=== PATIENT | female | born 1990 | race Native Hawaiian/Other Pacific Islander ===

== ENCOUNTER 2018-06-05 09:51 | Inpatient (IN) | payer OTHER ==
[2018-05-30 15:26] VITALS: BMI 52.2
--- NOTE | 2018-06-04 21:09 | P.HPOB ---
History of Present Illness H&P Date: 06/04/18 Chief Complaint: Scheduled repeat section This is a 28-year-old female 2 para 1 with an estimated date of confinement of 06/12/2018, estimated gestational age of 39-0/7 weeks, who presents to labor and delivery for scheduled repeat section. She admits to good movement. She denies any regular contractions. course was complicated by partial previa early on in her . This did resolve by 32 weeks. labs: GC/chlamydia-negative Hepatitis B surface antigen-negative RPR-nonreactive Rubella-immune Blood type-B+ Antibody screen-negative HIV-nonreactive Hemoglobin-13 Toxoplasma-positive IgG and negative IgM Random glucose-94 One hour Glucola-159 Three-hour Glucola-1 hour value high but all others normal Group B streptococcus-negative Obstetrical history: . History of 1 delivery due to failed induction. Infant weight was 8 lbs. 10 oz. Gynecologic history: No history of sexually transmitted diseases. Review of Systems Constitutional: Denies chills, Denies fever Eyes: denies blurred vision, denies pain Ears, nose, mouth and throat: Denies headache, Denies sore throat Cardiovascular: Denies chest pain, Denies shortness of breath Respiratory: Denies cough Gastrointestinal: Reports abdominal pain Genitourinary: Reports pelvic pain, Reports Musculoskeletal: Reports low back pain Integumentary: Denies pruritus, Denies rash Neurological: Denies numbness, Denies weakness Psychiatric: Denies anxiety, Denies depression Past Medical History Past Medical History: GERD/Reflux History of Any Multi-Drug Resistant Organisms: None Reported Past Surgical History: Section, Tonsillectomy Past Anesthesia/Blood Transfusion Reactions: No Reported Reaction Additional Past Anesthesia/Blood Transfusion Reaction / Comment(s): . Past Psychological History: No Psychological Hx Reported Smoking Status: Former smoker Past Alcohol Use History: None Reported Additional Past Alcohol Use History / Comment(s): Quit smoking 9 months ago., started smoking at age 18,<1ppd Past Drug Use History: None Reported - Past Family History Mother Family Medical History: Diabetes Mellitus Father Family Medical History: No Reported History Medications and Allergies Home Medications Medication Instructions Recorded Confirmed Type Pnv No.95/Ferrous Fum/Folic AC 1 each PO DAILY 12/28/18 12/28/18 History [ Multivitamin Tablet] Tums (Unknown Dose) 1 tab PO DIRECTED PRN 05/30/18 History Allergies Allergy/AdvReac Type Severity Reaction Status Date / Time No Known Allergies Allergy Verified 05/30/18 15:13 Exam Osteopathic Statement: *. No significant issues noted on an osteopathic structural exam other than those noted in the History and Physical/Consult. HEENT: Within normal limits Heart: Regular rate and rhythm Lungs: Clear to auscultation bilaterally Abdomen: Cervix: Fingertip/60%/-3 heart tones: 150s by Doppler Extremities: Negative Homans Assessment and Plan (1) 39 weeks gestation of Status: Acute Code(s): Z3A.39 - 39 WEEKS GESTATION OF SNOMED Code( s): 08371389 (2) Previous section Status: Acute Code(s): Z98.891 - HISTORY OF UTERINE SCAR FROM PREVIOUS SURGERY SNOMED Code(s): 851186211 Plan: Proceed with repeat low transverse section. I have discussed the risks, benefits, and alternative therapies for the above- mentioned procedure and for both sedation/anesthesia as well as necessary blood products administration, if indicated, as they pertain to this patient. The patient has indicated her understanding and acceptance of the risks and procedures discussed.
[2018-06-05] MEDS ORDERED: CITRIC ACID-SODIUM CITRATE 15 ML CUP PO ONE (10:00)
[2018-06-05] MEDS ORDERED: LIDOCAINE 1% 20 ML VIAL (10MG/ML) FOR IV START INTRADERMA PRN (10:00)
[2018-06-05] MEDS ORDERED: LACTATED RINGERS 1,000 ML IV ONE (10:00)
[2018-06-05 10:19] LABS: Basophils % (A) 0 %; Eosinophils # (A) 0.1 k/uL (0-0.7); Eosinophils % (A) 1 %; HCT 31.1 % (34.0-46.0); HGB 10.1 gm/dL (11.4-16.0); Hypochromasia Slight; Lymphocytes # (A) 2.6 k/uL (1.0-4.8); Lymphocytes % (A) 25 %; MCH 25.4 pg (25.0-35.0); MCHC 32.6 g/dL (31.0-37.0); Mean Platelet Volume 9.8; Monocytes # (A) 0.5 k/uL (0-1.0); Monocytes % (A) 5 %; Neutrophils # (A) 6.9 k/uL (1.3-7.7); Neutrophils % (A) 67 %; Platelet Count 215 k/uL (150-450); RBC 3.98 m/uL (3.80-5.40); RDW 14.4 % (11.5-15.5); WBC 10.2 k/uL (3.8-10.6)
[2018-06-05] MEDS: LACTATED RINGERS 1,000 ML IV SCH ×2 (10:58→22:05)
[2018-06-05] MEDS ORDERED: KETOROLAC 30 MG/ML 1 ML VIAL ONE (11:59)
[2018-06-05] MEDS ORDERED: LACTATED RINGERS 1,000 ML BAG IV ONE (11:59)
[2018-06-05] MEDS ORDERED: OXYTOCIN 10 UNIT/ML 1 ML VIAL ONE (11:59)
[2018-06-05] MEDS ORDERED: PHENYLEPHRINE-0.9% NACL SYG 1 MG/10 ML SYRINGE ONE (11:59)
[2018-06-05] MEDS ORDERED: ONDANSETRON 4 MG/2 ML VIAL ONE (11:59)
[2018-06-05] MEDS ORDERED: NALBUPHINE 10 MG/ML VIAL (10ML MDV) ONE (11:59)
--- NOTE | 2018-06-05 12:47 | P.OP ---
Date of Procedure: 06/05/18 Preoperative Diagnosis: 1. Intrauterine at 39-0/7 weeks. 2. History of previous section. Postoperative Diagnosis: Same plus meconium fluid Procedure(s) Performed: Repeat low transverse section Anesthesia: spinal (Duramorph) Surgeon: Kareen Porras Music Engineer #1: Dre Weaver Estimated Blood Loss (ml): 600 Pathology: other (Placenta) Condition: stable Disposition: floor Indications for Procedure: This is a 28-year-old female 2 para 1 at 39-0/7 weeks who presents for scheduled repeat section. I have discussed the risks, benefits, and alternative therapies for the above- mentioned procedure and for both sedation/anesthesia as well as necessary blood products administration, if indicated, as they pertain to this patient. The patient has indicated her understanding and acceptance of the risks and procedures discussed. Operative Findings: A viable male infant is noted in the vertex presentation with scores of 8 at 1 minute and 9 at 5 minutes and infant weight of 9 lbs. 7 oz. Meconium stained fluid was noted. Normal uterus tubes and ovaries are noted. There was noted to be some omental adhesions to the anterior abdominal wall just below the umbilicus. Description of Procedure: The patient is taken to the operating room where she is placed in the dorsal supine position with leftward tilt after spinal Duramorph anesthesia is given. She is prepped and draped in the normal sterile fashion. Skin was tested and found to be adequately anesthetized. A Pfannenstiel skin incision was made with a scalpel through the previous laparotomy scar. A second knife was used to carry the incision down to the underlying layer of fascia. The fascia was nicked in the midline with a scalpel and then extended laterally bilaterally with Guerra scissors. The anterior lip of the fascia was grasped with 2 Jocy clamps and then dissected off the underlying rectus muscle in the midline with Guerra scissors. The inferior aspect of the fascial incision was grasped with 2 Jocy clamps and dissected off the underlying rectus muscle and the midline with Guerra scissors. Next the peritoneum layer tented up with 2 hemostats and then entered sharply with the scalpel. The incision is extended superiorly and inferiorly with Metzenbaum scissors. There is noted to be some omental adhesions near the superior portion of the peritoneal incision. Next an Reji wound placed. Next the Delee retractor was inserte. The vesicouterine peritoneum is entered sharply with Metzenbaum scissors and extended laterally bilaterally with Metzenbaum scissors and then the bladder flap is pushed inferiorly. The lower uterine segment is noted to be very thin. The lower uterine segment is incised in transverse fashion with the scalpel and then bluntly entered with a hemostat. Meconium fluid is noted. The incision was then extended laterally bilaterally with 2 fingers. Next the 's head is delivered through the incision. Nose and mouth are bulb suctioned. The remainder of the infant is easily delivered and placed on mother's abdomen. Cord is clamped and cut. Infant is taken to warmer by nursing staff. Uterine fundus is gently massaged and placenta is delivered manually. Meconium staining was noted. Uterus is exteriorized and cleared of all clots and debris. Uterine incision is closed with 0 Vicryl suture in a running locked fashion. A second layer of 0 Vicryl suture is used in a running fashion for hemostasis. A couple interrupted stitches are placed for hemostasis. Posterior cul-de-sac is suctioned of all clots and debris. Uterus is returned to the abdomen. Incision is noted to be hemostatic. Peritoneal layer is closed with 0 Vicryl suture in a running fashion. Muscle layer is reapproximated with 0 Vicryl suture in interrupted fashion. Fascia layer is then closed with 0 PDS suture with 2 sutures meeting in the midline and the knots buried in either side and in the midline. The subcutaneous tissue was then closed with 2-0 Vicryl suture. Skin layer was then closed with good. All sponge and needle counts are correct. The patient is taken to recovery room in stable condition.
[2018-06-05] MEDS ORDERED: ZOLPIDEM 5 MG TAB PO PRN (12:53)
[2018-06-05] MEDS ORDERED: LANOLIN CREAM 5 GM TUBE TOPICAL PRN (12:53)
[2018-06-05] MEDS ORDERED: SIMETHICONE 80 MG CHEWABLE PO PRN (12:53)
[2018-06-05] MEDS ORDERED: diphenhydrAMINE 50 MG/ML 1 ML VIAL IVP PRN ×2 (12:53)
[2018-06-05] MEDS ORDERED: ONDANSETRON 4 MG/2 ML VIAL IVP PRN (12:53)
[2018-06-05] MEDS ORDERED: diphenhydrAMINE 50 MG CAP PO PRN (12:53)
[2018-06-05] MEDS ORDERED: diphenhydrAMINE 25 MG CAP PO PRN (12:53)
[2018-06-05] MEDS ORDERED: NALOXONE 0.4 MG/ML 1 ML VIAL IV PRN (12:53)
[2018-06-05] MEDS ORDERED: OXYTOCIN 20 UNITS/1000 ML NS 1,000 ML IV SCH (12:53)
[2018-06-05] MEDS ORDERED: HYDROcodone/APAP 5-325MG 1 EACH TAB PO PRN (12:53)
[2018-06-05] MEDS ORDERED: ACETAMINOPHEN TAB 325 MG TAB PO PRN (12:53)
[2018-06-05] MEDS ORDERED: HYDROcodone/APAP 7.5-325MG 1 EACH TAB PO PRN (12:53)
[2018-06-05] MEDS ORDERED: METOCLOPRAMIDE 5 MG/ML 2 ML VIAL IVP PRN (12:53)
[2018-06-05] MEDS: SENNOSIDES-DOCUSATE SODIUM 1 EACH TAB PO SCH (20:59)
[2018-06-05] MEDS: KETOROLAC 30 MG/ML 1 ML VIAL IVP PRN (21:00)
[2018-06-06] MEDS: KETOROLAC 30 MG/ML 1 ML VIAL IVP PRN (02:07)
--- NOTE | 2018-06-06 07:17 | P.PN ---
Progress Note - Text Date:06/06 Time:659 Patient is status post . Patient seen this morning with VAS score of 2.no c/o of pruritus, no c/o nausea/vomiting, comfortable and doing well.
[2018-06-06 08:14] LABS: Basophils % (A) 0 %; Eosinophils # (A) 0.1 k/uL (0-0.7); Eosinophils % (A) 1 %; Hypochromasia Slight; Lymphocytes # (A) 2.2 k/uL (1.0-4.8); Lymphocytes % (A) 24 %; MCH 24.6 pg (25.0-35.0); MCHC 31.3 g/dL (31.0-37.0); MCV 78.7 fL (80.0-100.0); Mean Platelet Volume 9.6; Monocytes # (A) 0.5 k/uL (0-1.0); Monocytes % (A) 5 %; Neutrophils # (A) 6.2 k/uL (1.3-7.7); Neutrophils % (A) 67 %; Platelet Count 173 k/uL (150-450); Poikilocytosis Slight; RBC 3.17 m/uL (3.80-5.40); RDW 14.3 % (11.5-15.5); WBC 9.3 k/uL (3.8-10.6)
[2018-06-06] MEDS: SENNOSIDES-DOCUSATE SODIUM 1 EACH TAB PO SCH ×2 (08:22→21:11)
[2018-06-06 08:27] LABS: HGB 7.8 gm/dL (11.4-16.0)
--- NOTE | 2018-06-06 08:51 | P.PNOBGPC ---
Subjective - Subjective Principal diagnosis: Status post repeat section postoperative day #1 Interval history: Patient is doing well. She is breast-feeding. Lochia is decreasing. Pain is well-controlled. She is passing flatus but no bowel movement yet. She is urinating without difficulty. Patient reports: Reports appetite normal, Reports voiding normally, Reports pain well controlled, Reports ambulating normally, Denies dizzy ambulation [place]: doing well, nursing well Objective - Vital Signs Latest vital signs: Vital Signs Temp Pulse Resp BP Pulse Ox 06/06/18 08:15 97.9 F 90 16 109/68 99 06/06/18 04:00 98.4 F 79 16 102/49 99 06/06/18 00:00 97.0 F L 80 16 109/54 97 06/05/18 19:00 98.6 F 79 16 123/73 97 06/05/18 14:50 97.7 F 72 18 107/55 06/05/18 14:20 97.4 F L 77 18 106/63 97 06/05/18 13:50 97.3 F L 67 18 116/61 100 06/05/18 13:35 96.7 F L 85 18 143/68 100 06/05/18 13:20 97.9 F 79 18 111/56 100 06/05/18 13:05 97.3 F L 84 18 112/56 100 06/05/18 12:50 97.2 F L 86 18 109/55 100 06/05/18 09:59 97.5 F L 85 18 130/65 99 Intake and Output 06/05/18 06/06/18 06/06/18 22:59 06:59 14:59 Intake Total 600 Output Total 350 400 Balance -350 -400 600 Intake: Oral 600 Output: Urine 350 400 Other: # Voids 1 2 - Exam Extremities: Present: normal. Absent: tenderness Abdomen: Present: normal appearance, soft (Positive bowel sounds 4). Absent: distention, tenderness Incision: Present: normal, dry, intact. Absent: erythematous Uterus: Present: normal, firm. Absent: tenderness - Labs Labs: Abnormal Lab Results - Last 24 Hours (Table) 06/05/18 06/06/18 Range/Units 10:05 06:38 RBC 3.17 L (3.80-5.40) m/uL Hgb 10.1 L 7.8 L D (11.4-16.0) gm/dL Hct 31.1 L 25.0 L (34.0-46.0) % MCV 78.0 L 78.7 L (80.0-100.0) fL MCH 24.6 L (25.0-35.0) pg Assessment and Plan Assessment: Impression is status post repeat section postoperative day #1 (1) 39 weeks gestation of Current Visit: No Status: Acute Code(s): Z3A.39 - 39 WEEKS GESTATION OF SNOMED Code(s): 03526530 (2) Previous section Current Visit: No Status: Acute Code(s): Z98.891 - HISTORY OF UTERINE SCAR FROM PREVIOUS SURGERY SNOMED Code(s): 830260457 Plan: We'll switch to oral pain medications today. Will advance diet as tolerated. Continue with ambulating.
[2018-06-06] MEDS: IBUPROFEN 600 MG TAB PO PRN ×2 (14:36→21:11)
[2018-06-07] MEDS: IBUPROFEN 600 MG TAB PO PRN ×3 (05:52→19:18)
[2018-06-07] MEDS: SENNOSIDES-DOCUSATE SODIUM 1 EACH TAB PO SCH ×2 (07:40→19:17)
--- NOTE | 2018-06-07 07:45 | P.PNOBGPC ---
Subjective - Subjective Patient reports: Reports appetite normal, Reports voiding normally, Reports pain well controlled, Reports ambulating normally [place]: doing well Objective - Vital Signs Latest vital signs: Vital Signs Temp Pulse Resp BP Pulse Ox 06/06/18 23:59 98.4 F 78 16 113/45 06/06/18 16:00 98.1 F 78 17 121/70 98 06/06/18 12:00 98.7 F 82 17 120/71 06/06/18 08:15 97.9 F 90 16 109/68 99 - Exam Lungs: bilateral: normal Chest: Normal S1, Normal S2 Extremities: Present: normal Abdomen: Present: normal appearance, soft. Absent: distention, tenderness Incision: Present: normal, dry, intact Uterus: Present: normal, firm - Labs Labs: Abnormal Lab Results - Last 24 Hours (Table) 06/06/18 Range/Units 06:38 RBC 3.17 L (3.80-5.40) m/uL Hgb 7.8 L D (11.4-16.0) gm/dL Hct 25.0 L (34.0-46.0) % MCV 78.7 L (80.0-100.0) fL MCH 24.6 L (25.0-35.0) pg Assessment and Plan Assessment: Postoperative day #2. Patient is resting without complaints and wishes to go home. Vital signs are stable she is afebrile. Uterus is firm nontender and her incision is intact and dry. Her baby is getting triple phototherapy, so I' m not sure if she is going to go home today or tomorrow. Plan today is to continue routine postoperative care, continue ambulation. (1) Previous section Current Visit: No Status: Acute Code(s): Z98.891 - HISTORY OF UTERINE SCAR FROM PREVIOUS SURGERY SNOMED Code(s): 858595588
--- NOTE | 2018-06-07 07:54 | P.DS ---
Providers Date of admission: 06/05/18 09:51 Expected date of discharge: 06/07/18 Attending physician: Kareen Porras Primary care physician: Stated None - Discharge Diagnosis(es) (1) Previous section Current Visit: No Status: Acute Hospital Course: Please see dictated H&P and operative note per Dr. Porras on this patient's admission. Brief summary this is a pleasant 28-year-old 2 para 1 female admitted for elective repeat section. Patient is admitted undergoes repeat section for a viable male . Please see dictated operative note. Postoperative and 2 patient's felt to be stable for discharge home follow up with Dr. Porras in 1 week for an incision check. Procedures: Repeat low transverse section Patient Condition at Discharge: Good Plan - Discharge Summary Discharge Rx Participant: Yes New Discharge Prescriptions: New Ibuprofen [Motrin] 600 mg PO Q6HR PRN #60 tab PRN Reason: Mild Pain Or Fever >= 100.5 HYDROcodone/APAP 5-325MG [[place] 5-325] 2 each PO Q4HR PRN #36 tab PRN Reason: Moderate Pain Continue Pnv No.95/Ferrous Fum/Folic AC [ Multivitamin Tablet] 1 each PO DAILY No Action Tums (Unknown Dose) 1 tab PO DIRECTED PRN PRN Reason: Heartburn Discharge Medication List Pnv No.95/Ferrous Fum/Folic AC [ Multivitamin Tablet] 1 each PO DAILY [History] Tums (Unknown Dose) 1 tab PO DIRECTED PRN 05/30/18 [History] Ibuprofen [Motrin] 600 mg PO Q6HR PRN #60 tab 06/06/18 [Rx] HYDROcodone/APAP 5-325MG [[place] 5-325] 2 each PO Q4HR PRN #36 tab 06/07/18 [Rx] Follow up Appointment(s)/Referral(s): Kareen Porras DO [Doctor of Osteopathic Medicine] - 06/13/18 1:30 pm (Please see Dr. Porras on July 18 at 11:30 for a check as well.) Patient Instructions/Handouts: (DC) Activity/Diet/Wound Care/Special Instructions: Instructions 1. Do not begin any exercise program for 3 weeks. 2. Do not resume sexual relations for 3 weeks or longer if uncomfortable. 3. You may take tub baths or showers at any time. 4. You may use tampons if desired after 3 weeks. 5. Keep the area of episiotomy (stitches) clean and dry. 6. If you are not nursing, wear a good fitting, supportive bra during the day and limit fluid intake for at least 1 week to prevent breast engorgement. 7. Call the office, [phone], within the next week to make appointment for your 6 week checkup if it has not already been made. 8. Report any of the following occurrences to the doctor promptly: a. Heavy, excessive bleeding b. Chills, fever c. Burning or frequency of urination d. Pain or redness and breasts if nursing e. Increasing pain or swelling in episiotomy (stitches). In addition to the above instructions, the following additional should be followed: 1. No heavy lifting or straining (exercising) until after 6 week checkup. 2. Keep abdominal incision clean and dry: You may wear a dressing if more comfortable. 3. Make office appointment for 10 days after going home or as instructed by her doctor. Discharge Disposition: HOME SELF-CARE
[2018-06-08] MEDS: IBUPROFEN 600 MG TAB PO PRN (06:10)
--- NOTE | 2018-06-08 06:55 | P.PN ---
Progress Note - Text Progress Note Date: 06/08/18 Patient's baby was unable to go home yesterday secondary to jaundice and therefore patient decided to stay until today. She continues to well without complaints felt to be stable for discharge home today.
[2018-06-08] MEDS: SENNOSIDES-DOCUSATE SODIUM 1 EACH TAB PO SCH (07:46)
[2018-06-08 07:57] VITALS: BP 115/59; PULSE 77; RESP 17; TEMP 98.1
== END 2018-06-08 10:40 | disposition home or self-care (01) | DRG 788 ==
LOC: 4FBP 09:51
PROVIDERS: ADMIT Obstetrics & Gynecology; ATTEND Obstetrics & Gynecology
PROC: 10D00Z1 Extraction of Products of Conception, Low, Open Approach (ICD-10-PCS; principal; 2018-06-05 12:00)
DX: O34.211 Maternal care for low transverse scar from previous cesarean delivery (principal); Z37.0 Single live birth; Z3A.39 39 weeks gestation of pregnancy; Z87.891 Personal history of nicotine dependence; K21.9 Gastro-esophageal reflux disease without esophagitis; O99.62 Diseases of the digestive system complicating childbirth; O77.0 Labor and delivery complicated by meconium in amniotic fluid; Z83.3 Family history of diabetes mellitus
CPT/HCPCS: 85025; 86850; 86900; 86901; 88307

== ENCOUNTER 2021-07-05 06:43 | Day surgery (SDC) | payer OTHER ==
[2021-06-29 15:57] VITALS: BMI 47.3
--- NOTE | 2021-07-04 21:32 | P.HPOB ---
History of Present Illness H&P Date: 07/04/21 Chief Complaint: JH II This is a 31 y.o. female 2, para 2, who presents for colposcopy with loop electrocautery excision procedure due to JH I & II on colposcopy done 10/20/2020. She had a repeat pap smear done 05/2021 that showed atypical squamous cells of undetermined significance with positive high risk HPV. She would like definitive surgical treatment. OB Hx: . History of 2 deliveries. [employer] Hx: Using condoms for control. No other history of STDs. Social Hx: Single. Factory work. Review of Systems Constitutional: Denies chills, Denies fever Eyes: denies blurred vision, denies pain Ears, nose, mouth and throat: Denies headache, Denies sore throat Cardiovascular: Denies chest pain, Denies shortness of breath Respiratory: Denies cough Gastrointestinal: Denies abdominal pain, Denies diarrhea, Denies nausea, Denies vomiting Genitourinary: Denies dysuria, Denies hematuria Musculoskeletal: Denies myalgias Integumentary: Denies pruritus, Denies rash Neurological: Denies numbness, Denies weakness Psychiatric: Denies anxiety, Denies depression Past Medical History Past Medical History: GERD/Reflux Additional Past Medical History / Comment(s): GERD WHILE . History of Any Multi-Drug Resistant Organisms: None Reported Past Surgical History: Section (x2), Tonsillectomy Past Anesthesia/Blood Transfusion Reactions: No Reported Reaction Additional Past Anesthesia/Blood Transfusion Reaction / Comment(s): . Past Psychological History: No Psychological Hx Reported Smoking Status: Former smoker Past Alcohol Use History: None Reported Additional Past Alcohol Use History / Comment(s): Quit smoking in 2018, started smoking at age 18, <1ppd. Past Drug Use History: None Reported - Past Family History Mother Family Medical History: Diabetes Mellitus Father Family Medical History: No Reported History Medications and Allergies Home Medications Medication Instructions Recorded Confirmed Type Cyanocobalamin (Vitamin B-12) 500 mcg PO DAILY 06/29/21 06/29/21 History [Vitamin B-12] Allergies Allergy/AdvReac Type Severity Reaction Status Date / Time No Known Allergies Allergy Verified 06/29/21 15:48 Exam Osteopathic Statement: *. No significant issues noted on an osteopathic structural exam other than those noted in the History and Physical/Consult. HEENT: within normal limits Heart: regular rate and rhythm Lungs: clear to auscultation bilaterally Abdomen: soft, non-tender Pelvic: uterus anteverted, non-tender, no adnexal masses Extremities: neg. Thania's Assessment and Plan (1) JH II (cervical intraepithelial neoplasia II) Current Visit: No Status: Acute Code(s): N87.1 - MODERATE CERVICAL DYSPLASIA SNOMED Code(s): 060615908 (2) JH I (cervical intraepithelial neoplasia I) Current Visit: No Status: Acute Code(s): N87.0 - MILD CERVICAL DYSPLASIA SNOMED Code(s): 351236450 Plan: Proceed with colposcopy with loop electrocautery excision procedure. I have discussed the risks, benefits, and alternative therapies for the above- mentioned procedure and for both sedation/anesthesia as well as necessary blood products administration, if indicated, as they pertain to this patient. The patient has indicated her understanding and acceptance of the risks and procedures discussed.
[~2021-07-05 06:43] MED LIST: Pre Op ABX Message 1 EACH MISC MISCELLANE ONE
[2021-07-05] MEDS ORDERED: LACTATED RINGERS 1,000 ML IV SCH (06:47)
[2021-07-05] MEDS ORDERED: LIDOCAINE 1% (10MG/ML) FOR IV START INTRADERMA PRN (06:47)
[2021-07-05] MEDS ORDERED: DEXAMETHASONE SOD PHOSPHATE 4 MG/ML 1 ML VIAL IV ONE (06:47)
[2021-07-05] MEDS ORDERED: ONDANSETRON 4 MG/2 ML VIAL IVP ONE (06:47)
[2021-07-05] MEDS ORDERED: HYDROmorphone 0.5 MG/0.5 ML SYRINGE IVP PRN (07:00)
[2021-07-05] MEDS ORDERED: PROPOFOL 10 MG/ML 20 ML VIAL IV ONE (07:52)
[2021-07-05] MEDS ORDERED: LIDOCAINE 1% INJ 10MG/ML (20 ML MDV) ONE (07:52)
[2021-07-05] MEDS ORDERED: fentaNYL (PF) 50 MCG/ML 2 ML AMP ONE (07:52)
[2021-07-05] MEDS ORDERED: SUCCINYLCHOLINE CHLORIDE 100 MG/5 ML SYR IV ONE (07:52)
[2021-07-05] MEDS ORDERED: MIDAZOLAM 2 MG/2 ML VIAL ONE (07:52)
[2021-07-05] MEDS ORDERED: BUPIVACAINE (PF) 0.5% 30 ML VIAL MISCELLANE ONE ×2 (08:11)
[2021-07-05] MEDS ORDERED: FERRIC SUBSULFATE (MONSELS) JAR TOPICAL ONE (08:11)
[2021-07-05] MEDS ORDERED: LIDOCAINE 1%-EPI 1:100,000 20 ML VIAL SUBMUCOSAL ONE ×2 (08:11)
[2021-07-05] MEDS ORDERED: ACETIC ACID 15 DROPS/ML DROPS MISCELLANE ONE (08:12)
[2021-07-05] MEDS ORDERED: IODINE/POTASS IOD (LUGOLS) BOTTLE TOPICAL ONE (08:13)
--- NOTE | 2021-07-05 08:21 | P.OP ---
Date of Procedure: 07/05/21 Preoperative Diagnosis: JH-1 and 2 Postoperative Diagnosis: Cervical dysplasia Procedure(s) Performed: Colposcopy with loop electrocautery excision procedure Anesthesia: RAHEEM Surgeon: Kareen Porras Estimated Blood Loss (ml): 2 Pathology: other (Ectocervix with 12 o'clock position marked with a suture) Indications for Procedure: This is a 31 y.o. female 2, para 2, who presents for colposcopy with loop electrocautery excision procedure due to JH I & II on colposcopy done 10/20/2020. She had a repeat pap smear done 05/2021 that showed atypical squamous cells of undetermined significance with positive high risk HPV. She would like definitive surgical treatment. Operative Findings: Transition zone is completely visualized. There is noted to be some Lugol white areas along the 6:00 border. No abnormalities are seen with acetic acid. No mosaicism was noted. Description of Procedure: The patient is taken to the operating room she is placed in the dorsal lithotomy position. She is prepped and draped in the normal sterile fashion. Her bladder is drained with a catheter. A coated bivalve speculum was then placed in the patient's vagina. The cervix is then visualized with a colposcope. Colposcopy is performed using a blue light. Cervix is swabbed with 5% acetic acid. No abnormalities are seen. Transition zone is seen entirely. Next the cervix is swabbed with Lugol solution. A linear area detached from the transition zone of Lugol white is noted along the 6:00 border. No other abnormalities are seen. Next the cervix is circumferentially injected using a spinal needle with a 50-50 mixture of 1% lidocaine with epinephrine and half percent Marcaine. Approximately 6 mL are used. Next a large loop was used to swipe from left to right using 35 W. of cutting power. The entire transition zone is removed. The specimen is labeled at the 12 o'clock position with a suture. Next the bed left behind is cauterized with Bovie cautery. Monsel solution is then applied. Excellent hemostasis is noted. All sponge and needle counts are correct. The patient is then taken to recovery room in stable condition.
[2021-07-05 08:42] VITALS: TEMP 97
[2021-07-05 09:30] VITALS: BP 109/67; PULSE 75; RESP 18
== END 2021-07-05 09:55 | disposition home or self-care (01) ==
LOC: OR 06:43
PROVIDERS: ATTEND Obstetrics & Gynecology
DX: N87.1 Moderate cervical dysplasia (principal); K21.9 Gastro-esophageal reflux disease without esophagitis; Z87.891 Personal history of nicotine dependence; Z83.3 Family history of diabetes mellitus
CPT/HCPCS: 57461; 81025; 88307; J2250; J1100; J2405; J2001; J3010; J0330; J2704

== ENCOUNTER → 2021-08-09 | Outpatient (CLI) | payer OTHER ==
--- NOTE | 2021-08-09 08:28 | US ---
EXAMINATION TYPE: US liver DATE OF EXAM: 08/09/2021 COMPARISON: NONE CLINICAL HISTORY: R74.8 Abn liver enzymes. Abnormal labs EXAM MEASUREMENTS: Liver Length: 17.3 cm Gallbladder Wall: 0.2 cm CBD: 0.5 cm Right Kidney: 12.1 x 5.5 x 4.1 cm Pancreas: Tail obscured by overlying bowel gas Liver: Increased attenuation Gallbladder: No stones seen Evidence for sonographic Herrera's sign: No CBD: wnl Right Kidney: No hydronephrosis or masses seen Increased attenuation suggestive of fatty liver. IMPRESSION: Hepatic steatosis.
== END | disposition home or self-care (01) ==
LOC: RADUSWWP 07:34
PROVIDERS: ATTEND Internal Medicine
DX: K76.0 Fatty (change of) liver, not elsewhere classified (principal)
CPT/HCPCS: 76705

== ENCOUNTER → 2022-10-15 | Outpatient (CLI) | payer OTHER ==
--- NOTE | 2022-10-16 08:58 | CT ---
EXAMINATION TYPE: CT brain wo con DATE OF EXAM: 10/15/2022 COMPARISON: None HISTORY: fell x 2 weeks ago onto right side of head. Headaches since fall. CT DLP: 1090.4 mGycm. Automated Exposure Control for Dose Reduction was Utilized. TECHNIQUE: CT scan of the head is performed without contrast. FINDINGS: There is no acute intracranial hemorrhage, mass effect, or midline shift identified. The ventricles and sulci are within normal limits in size. The globes are intact and the visualized sin uses are clear. IMPRESSION: No acute intracranial hemorrhage, mass effect, or midline shift is seen.
== END | disposition home or self-care (01) ==
LOC: RADCTMAIN 18:54
PROVIDERS: ATTEND Internal Medicine
DX: G44.309 Post-traumatic headache, unspecified, not intractable (principal)
CPT/HCPCS: 70450

== ENCOUNTER 2022-10-24 08:35 | Emergency (ER) | payer OTHER ==
[2022-10-24 08:52] VITALS: RESP 18
[2022-10-24] MEDS ORDERED: SODIUM CHLORIDE 0.9% 500 ML 500 ML IV STA (09:11)
--- NOTE | 2022-10-24 09:23 | ED ---
Arrhythmia/Palpitations HPI - General Chief Complaint: Arrhythmia/Palpitations Stated Complaint: Heart rate went up - monitior Time Seen by Provider: 10/24/22 08:54 Source: patient, RN notes reviewed Mode of arrival: ambulatory Limitations: no limitations - History of Present Illness Initial Comments: 32-year-old female presents emergency Department with chief complaint of elevated heart rate. Patient states she was at work just prior arrival in which she states she felt off didn't feel right states that she felt that her heart rate and watch and said it was 201. Patient states symptoms shortly subsided. Patient states she just feels tired at this time. She does have a Holter monitor on that she is wearing for one month she's had 2 weeks and she states she is scheduled follow-up with cardiology. She believes her regional sales associate was Dr. Brian. Patient denies any chest pain - Related Data Home Medications Medication Instructions Recorded Confirmed Phentermine HCl 37.5 mg PO DAILY 09/04/21 10/24/22 Topiramate [Topamax] 25 mg PO DAILY 09/04/21 10/24/22 Ergocalciferol [Vitamin D2 (1250 1,250 mcg PO MO 10/24/22 10/24/22 Mcg = 67103 Iu)] Levothyroxine Sodium [Synthroid] 88 mcg PO DAILY 10/24/22 10/24/22 Allergies Allergy/AdvReac Type Severity Reaction Status Date / Time No Known Allergies Allergy Verified 10/24/22 09:16 Review of Systems ROS Statement: Those systems with pertinent positive or pertinent negative responses have been documented in the HPI. ROS Other: All systems not noted in ROS Statement are negative. Past Medical History Past Medical History: GERD/Reflux Additional Past Medical History / Comment(s): GERD WHILE . BILAT CARPAL TUNNEL History of Any Multi-Drug Resistant Organisms: None Reported Past Surgical History: Section, Tonsillectomy Additional Past Surgical History / Comment(s): LEEP-07/05/21 Past Anesthesia/Blood Transfusion Reactions: No Reported Reaction Additional Past Anesthesia/Blood Transfusion Reaction / Comment(s): . Past Psychological History: No Psychological Hx Reported Smoking Status: Former smoker Past Alcohol Use History: None Reported Past Drug Use History: None Reported - Past Family History Mother Family Medical History: Diabetes Mellitus Father Family Medical History: No Reported History General Exam Limitations: no limitations General appearance: alert, in no apparent distress Head exam: Present: atraumatic, normocephalic, normal inspection Eye exam: Present: normal appearance, PERRL, EOMI. Absent: scleral icterus, conjunctival injection, periorbital swelling ENT exam: Present: normal exam, normal oropharynx, mucous membranes moist Neck exam: Present: normal inspection, full ROM. Absent: tenderness, meningismus, lymphadenopathy Respiratory exam: Present: normal lung sounds bilaterally. Absent: respiratory distress, wheezes, rales, rhonchi, stridor Cardiovascular Exam: Present: normal rhythm, tachycardia, normal heart sounds. Absent: systolic murmur, diastolic murmur, rubs, gallop, clicks GI/Abdominal exam: Present: soft, normal bowel sounds. Absent: distended, tenderness, guarding, rebound, rigid Course Vital Signs 10/24/22 10/24/22 10/24/22 08:48 09:05 10:00 Temperature 97.2 F L Pulse Rate 111 H 92 Pulse Rate [ 105 H Tread Cutter ] Respiratory 18 Rate Blood Pressure 126/77 O2 Sat by Pulse 98 Oximetry 10/24/22 10:47 Temperature 98.2 F Pulse Rate 94 Pulse Rate [ Tread Cutter ] Respiratory 18 Rate Blood Pressure 120/74 O2 Sat by Pulse 100 Oximetry EKG Findings - EKG Comments: EKG Findings:: EKG performed sinus tachycardia with a rate of 106 LA 169 QRS 89 QT/QTC 327/389 - EKG Results: EKG: interpreted by [facility] Medical Decision Making - Medical Decision Making Was pt. sent in by a medical professional or institution (, PA, GENERAL MATCHER, urgent care, hospital, or [facility]...) When possible be specific @ -No Did you speak to anyone other than the patient for history (EMS, parent, family, police, friend...)? What history was obtained from this source @ -No Did you review nursing and triage notes (agree or disagree)? Why? @ -I reviewed and agree with nursing and triage notes Were old charts reviewed (outside hosp., previous admission, EMS record, old EKG , old radiological studies, urgent care reports/EKG's, [facility] records)? Report findings @ -No old charts were reviewed Differential Diagnosis (chest pain, altered mental status, abdominal pain women, abdominal pain men, vaginal bleeding, weakness, fever, dyspnea, syncope, headache, dizziness, GI bleed, back pain, seizure, CVA, palpatations, mental health, musculoskeletal)? @ -Differential Palpitations Ventricular arrhythmias, atrial arrhythmias, myocardial infarction, anemia, thyrotoxicosis, electrolyte imbalance, hypokalemia, pulmonary embolism, pulmonary disease, drugs, alcohol, anxiety, stress.... This is not meant to be an all-inclusive list.ble EKG interpreted by me (3pts min.). @ -As above X-rays interpreted by me (1pt min.). @ -None done CT interpreted by me (1pt min.). @ -None done U/S interpreted by me (1pt. min.). @ -None done What testing was considered but not performed or refused? (CT, X-rays, U/S, labs)? Why? @ -None What meds were considered but not given or refused? Why? @ -None Did you discuss the management of the patient with other professionals (tiago krishnamurthy i.e. , PA, GENERAL MATCHER, lab, RT, psych nurse, licensed social worker, asphalt plant laborer, teacher, senior major gifts officer, welfare case worker)? Give summary @ -No Was smoking cessation discussed for >3mins.? @ -No Was critical care preformed (if so, how long)? @ -No Were there social determinants of health that impacted care today? How? (Homelessness, low income, unemployed, alcoholism, drug addiction, transportatio n, low edu. Level, literacy, decrease access to med. care, [facility], rehab)? @ -No Was there de-escalation of care discussed even if they declined (Discuss DNR or withdrawal of care, Hospice)? DNR status @ -No What co-morbidities impacted this encounter? (DM, HTN, Smoking, COPD, CAD, Cancer, CVA, ARF, Chemo, Hep., AIDS, mental health diagnosis, sleep apnea, morbid obesity)? @ -None Was patient admitted / discharged? Hospital course, mention meds given and route, prescriptions, significant lab abnormalities, going to OR and other pertinent info. @ -[Discharge patient has palpitations patient has been in normal sinus rhythm here with no abnormal laboratory changes. Patient does have a Holter monitor on showed is advised to follow with cardiology. Undiagnosed new problem with uncertain prognosis? @ -No Drug Therapy requiring intensive monitoring for toxicity (Heparin, Nitro, Insulin, Cardizem)? @ -No Were any procedures done? @ -No Diagnosis/symptom? @ -Palpitations Acute, or Chronic, or Acute on Chronic? @ -Acute Uncomplicated (without systemic symptoms) or Complicated (systemic symptoms)? @ -Uncomplicated Side effects of treatment? @ -No Exacerbation, Progression, or Severe Exacerbation? @ -No Poses a threat to life or bodily function? How? (Chest pain, [place], [place], pneumonia, PE, COPD, DKA, ARF, appy, cholecystitis, CVA, Diverticulitis, Homicidal, Suicidal, threat to staff... and all critical care pts) @ -No - Lab Data Result diagrams: 10/24/22 09:16 10/24/22 09:16 Lab Results 10/24/22 10/24/22 Range/Units 09:16 09:16 WBC 7.0 (3.8-10.6) k/uL RBC 4.57 (3.80-5.40) m/uL Hgb 12.7 (11.4-16.0) gm/dL Hct 38.7 (34.0-46.0) % MCV 84.8 (80.0-100.0) fL MCH 27.7 (25.0-35.0) pg MCHC 32.7 (31.0-37.0) g/dL RDW 13.1 (11.5-15.5) % Plt Count 258 (150-450) k/uL MPV 9.5 Neutrophils % 61 % Lymphocytes % 31 % Monocytes % 4 % Eosinophils % 2 % Basophils % 0 % Neutrophils # 4.3 (1.3-7.7) k/uL Lymphocytes # 2.2 (1.0-4.8) k/uL Monocytes # 0.3 (0-1.0) k/uL Eosinophils # 0.1 (0-0.7) k/uL Basophils # 0.0 (0-0.2) k/uL Sodium 139 (137-145) mmol/L Potassium 3.6 (3.5-5.1) mmol/L Chloride 104 (98-107) mmol/L Carbon Dioxide 26 (22-30) mmol/L Anion Gap 9 mmol/L BUN 15 (7-17) mg/dL Creatinine 0.81 (0.52-1.04) mg/dL Est GFR (CKD-EPI)AfAm >90 (>60 ml/min/1.73 sqM) Est GFR (CKD-EPI)NonAf >90 (>60 ml/min/1.73 sqM) Glucose 87 (74-99) mg/dL Calcium 8.5 (8.4-10.2) mg/dL Magnesium 1.9 (1.6-2.3) mg/dL Total Bilirubin 0.7 (0.2-1.3) mg/dL AST 30 (14-36) U/L ALT 34 (4-34) U/L Alkaline Phosphatase 54 (38-126) U/L Total Protein 6.9 (6.3-8.2) g/dL Albumin 4.1 (3.5-5.0) g/dL TSH 2.820 (0.465-4.680) mIU/L Disposition Clinical Impression: Palpitations Disposition: HOME SELF-CARE Condition: Stable Instructions (If sedation given, give patient instructions): Heart Palpitations (ED) Additional Instructions: Please return to the Emergency Department if symptoms worsen or any other concerns. Is patient prescribed a controlled substance at d/c from ED?: No Referrals: Florence Marley MD [Primary Care Provider] - 1-2 days Time of Disposition: 10:38
[2022-10-24 09:29] LABS: Basophils % (A) 0 %; Eosinophils # (A) 0.1 k/uL (0-0.7); Eosinophils % (A) 2 %; HCT 38.7 % (34.0-46.0); HGB 12.7 gm/dL (11.4-16.0); Lymphocytes # (A) 2.2 k/uL (1.0-4.8); Lymphocytes % (A) 31 %; MCH 27.7 pg (25.0-35.0); MCHC 32.7 g/dL (31.0-37.0); MCV 84.8 fL (80.0-100.0); Mean Platelet Volume 9.5; Monocytes # (A) 0.3 k/uL (0-1.0); Monocytes % (A) 4 %; Neutrophils # (A) 4.3 k/uL (1.3-7.7); Neutrophils % (A) 61 %; Platelet Count 258 k/uL (150-450); RBC 4.57 m/uL (3.80-5.40); RDW 13.1 % (11.5-15.5)
[2022-10-24 09:56] LABS: ALT 34 U/L (4-34); AST 30 U/L (14-36); African American GFR (CKD) >90 (>60 ml/min/1.73 sqM); Albumin 4.1 g/dL (3.5-5.0); Alkaline Phosphatase 54 U/L (38-126); Anion Gap 9 mmol/L; Blood Urea Nitrogen 15 mg/dL (7-17); Calcium 8.5 mg/dL (8.4-10.2); Carbon Dioxide 26 mmol/L (22-30); Chloride 104 mmol/L (98-107); Glucose 87 mg/dL (74-99); Magnesium 1.9 mg/dL (1.6-2.3); Non-African American GFR(CKD) >90 (>60 ml/min/1.73 sqM); Potassium 3.6 mmol/L (3.5-5.1); Sodium 139 mmol/L (137-145); Total Bilirubin 0.7 mg/dL (0.2-1.3); Total Protein 6.9 g/dL (6.3-8.2)
[2022-10-24 10:48] VITALS: BP 120/74; PULSE 94; TEMP 98.2
== END 2022-10-24 10:51 | disposition home or self-care (01) ==
LOC: EC 08:35
DX: R00.2 Palpitations (principal); Z87.891 Personal history of nicotine dependence
CPT/HCPCS: 36415; 80053; 83735; 84443; 85025; 93005; 96360; 99285

== ENCOUNTER 2023-06-17 09:11 | Day surgery (SDC) | payer BC, OTHER ==
[2023-06-14 08:39] VITALS: BMI 41.1
[2023-06-17] MEDS ORDERED: SODIUM CHLORIDE 0.9% 1,000 ML IV ONE (09:19)
[2023-06-17 10:08] LABS: Basophils % (A) 0 %; Eosinophils # (A) 0.1 k/uL (0-0.7); Eosinophils % (A) 2 %; HCT 36.7 % (34.0-46.0); HGB 11.8 gm/dL (11.4-16.0); Hypochromasia Slight; Lymphocytes # (A) 2.4 k/uL (1.0-4.8); Lymphocytes % (A) 28 %; MCH 26.4 pg (25.0-35.0); MCHC 32.1 g/dL (31.0-37.0); Mean Platelet Volume 8.6; Monocytes # (A) 0.4 k/uL (0-1.0); Monocytes % (A) 5 %; Neutrophils # (A) 5.3 k/uL (1.3-7.7); Neutrophils % (A) 63 %; Platelet Count 335 k/uL (150-450); RBC 4.47 m/uL (3.80-5.40); RDW 13.9 % (11.5-15.5); WBC 8.4 k/uL (3.8-10.6)
[2023-06-17 10:54] LABS: African American GFR (CKD) >90 (>60 ml/min/1.73 sqM); Anion Gap 6 mmol/L; Blood Urea Nitrogen 10 mg/dL (7-17); Calcium 8.9 mg/dL (8.4-10.2); Carbon Dioxide 25 mmol/L (22-30); Chloride 106 mmol/L (98-107); Glucose 99 mg/dL (74-99); Non-African American GFR(CKD) >90 (>60 ml/min/1.73 sqM); Potassium 4.1 mmol/L (3.5-5.1); Sodium 137 mmol/L (137-145)
[2023-06-17] MEDS ORDERED: MIDAZOLAM 2 MG/2 ML VIAL ONE (13:38)
[2023-06-17] MEDS ORDERED: fentaNYL (PF) 50 MCG/ML 2 ML AMP ONE (13:38)
[2023-06-17] MEDS ORDERED: HYDROmorphone (PF) 1 MG/ML ONE (13:38)
[2023-06-17] MEDS ORDERED: ISOPROTERENOL 250 MCG/1.25 ML SYR IV ONE (13:38)
[2023-06-17] MEDS ORDERED: IV FLUID CONTINUATION 1,000 ML IV ONE (14:00)
[2023-06-17] MEDS ORDERED: LIDOCAINE 1% INJ 10MG/ML (20 ML MDV) SQ ONE (14:28)
[2023-06-17] MEDS ORDERED: LIDOCAINE 1% INJ 10MG/ML (20 ML MDV) ONE (14:34)
[2023-06-17] MEDS ORDERED: HEPARIN SODIUM,PORCINE 10,000 UNIT in SODIUM CHLORIDE 0.9% 1,000 ML IRRIGATION ONE (15:30)
--- NOTE | 2023-06-17 15:34 | P.HPCAR ---
History of Present Illness This is Dr. Lozoya dictating an H/P on this patient The patient was interviewed and examined IMPRESSION / ASSESSMENT: Recurrent dizzy spells with nausea and sweatiness Recurrent palpitations Documented narrow complex tachycardia at 210 beats a minute 2-D echo shows preserved LV systolic function PLAN: Proceed with a diagnostic EP study and possible referral see ablation HPI Patient has a history of recurrent dizzy spells nausea She also complains of recurrent palpitations at that time his pectoral chest discomfort No fever chills cough expectoration recently ROS: No fever chills or rigors, no cough, phlegm or expectoration, no nausea, vomiting or diarrhea, no hematuria, dysuria, no musculoskeletal complaints, no strokes or seizures, no skin lesions. EXAMINATION: Afebrile 98.5F pulse rate 63 beats a minute. Respirations normal Blood pressure 127/76. His mercury Normal heart sounds no murmurs or gallop or rub Breath sounds are clear REVIEW OF LABS, ECG & MEDICAL DATA WHITE count 8.4 thousand Hemoglobin and hematocrit 11.8 and 36.7 Platelets normal Creatinine 0.78 Physical Exam Vitals: Vital Signs Temp Pulse Resp BP Pulse Ox 06/17/23 09:35 98.5 F 63 16 127/76 100 Intake and Output 06/17/23 06/17/23 06/17/23 06:59 14:59 22:59 Intake Total 50 Balance 50 Intake: IV 50 Other: Weight 114.4 kg Past Medical History Past Medical History: GERD/Reflux, Supraventricular Tachycardia (SVT), Syncope, Thyroid Disorder Additional Past Medical History / Comment(s): SEE DR LOZOYA'S H&P History of Any Multi-Drug Resistant Organisms: None Reported Past Surgical History: Section, Tonsillectomy Additional Past Surgical History / Comment(s): LEEP PROCEDURE Past Anesthesia/Blood Transfusion Reactions: No Reported Reaction Additional Past Anesthesia/Blood Transfusion Reaction / Comment(s): . Past Psychological History: No Psychological Hx Reported Smoking Status: Former smoker Past Alcohol Use History: None Reported Additional Past Alcohol Use History / Comment(s): Quit smoking in 2018, started smoking at age 18, <1ppd. Past Drug Use History: None Reported - Past Family History Mother Family Medical History: Diabetes Mellitus Father Family Medical History: No Reported History Physical Examination Vital Signs Temp Pulse Resp BP Pulse Ox 06/17/23 09:35 98.5 F 63 16 127/76 100 Intake and Output 06/17/23 06/17/23 06/17/23 06:59 14:59 22:59 Intake Total 50 Balance 50 Intake: IV 50 Other: Weight 114.4 kg Results 06/17/23 09:20 06/17/23 09:20 CBC 06/17/23 Range/Units 09:20 WBC 8.4 (3.8-10.6) k/uL RBC 4.47 (3.80-5.40) m/uL Hgb 11.8 (11.4-16.0) gm/dL Hct 36.7 (34.0-46.0) % Plt Count 335 (150-450) k/uL Comprehensive Metabolic Panel 06/17/23 Range/Units 09:20 Sodium 137 (137-145) mmol/L Potassium 4.1 (3.5-5.1) mmol/L Chloride 106 (98-107) mmol/L Carbon Dioxide 25 (22-30) mmol/L BUN 10 (7-17) mg/dL Creatinine 0.78 (0.52-1.04) mg/dL Glucose 99 (74-99) mg/dL Calcium 8.9 (8.4-10.2) mg/dL Current Medications Generic Name Dose Route Start Last Admin Trade Name Freq PRN Reason Stop Dose Admin Sodium Chloride 1,000 mls @ 50 mls/hr 06/17/23 05:57 Saline 0.9% IV 07/17/23 05:58 .Q20H NAY Intake and Output 06/17/23 06/17/23 06/17/23 06:59 14:59 22:59 Intake Total 50 Balance 50 Intake: IV 50 Other: Weight 114.4 kg Patient Weight 06/18/23 06:59 Weight 114.4 kg 06/17/23 09:20 06/17/23 09:20
--- NOTE | 2023-06-17 16:52 | P.EPPROC ---
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 Written informed consent was obtained prior to the procedure. The right and left groins were prepped and draped as per protocol. Venous sheaths were placed in the high right atrium His bundle area coronary sinus and right ventricle A full diagnostic EP study is performed Sinus cycle length 960 ms, DE interval 148 ms, QRS 99 ms, QT interval 382 ms AH 82 ms and HV interval 44 ms Jose Maria response to Parahisian pacing Sinus recovery times were normal. Carotid sinus recovery times abnormal AV node Wenckebach block 500 ms VA Wenckebach block 530 ms Atrial extra stimulation from the high right atrium upper double extra stimuli did not inducible SVT Isuprel was started AV node Wenckebach block improved to 250 ms With triple extra stimuli from the Kory sinus, SVT was induced SVT cycling 330 ms Septal times a short consistent with AV jose maria reentry A mapping and ablation catheter along with a long sheath was placed 3-D electro-anatomic mapping was performed Slow pathway was prepped His bundle and Kory sinus V. tach Occasional junctional rhythm was obtained RF ablation was performed just outside the Kory sinus os and outside the roof of the coronary sinus Successful site was just outside the roof of the coronary sinus Following that high-dose Isuprel was used for stimulation from the high right atrium and the Kory sinus was performed Extremities stimulation after triple extra stimuli from the coronary sinus was performed There was no evidence for slow pathway conduction and no evidence for AV jose maria reentry thereafter VISIT removed Vascade closure device was applied Patient tolerated the procedure well without any acute complications
--- NOTE | 2023-06-17 16:54 | P.EPPROC ---
- EP Procedure Note Electrophysiology Procedure Note: Diagnosis Recurrent presyncope associated with nausea and and sweatiness Twelve-lead EKG Sinus mechanism normal WA narrow care of normal ST segments normal QT interval Tilt table test per protocol Baseline blood pressure 112/64 mmHg be sent to 64 beats a minute Patient was tilted upright at night was 70 per protocol No change in heart rate blood pressure No evidence for neurocardiogenic syncope Impression Normal EKG Normal heart rate and blood pressure response to upright tilting
--- NOTE | 2023-06-17 16:56 | P.PRLE ---
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 The tachycardia was rendered noninducible At this time I'm discontinuing beta blockers completely Thank you for entrusting me with the care of the patient Warm regards Sincerely Win Lozoya
[2023-06-17] MEDS ORDERED: ACETAMINOPHEN TAB 325 MG TAB PO PRN (16:58)
[2023-06-17] MEDS ORDERED: HYDROcodone/APAP 5-325MG 1 EACH TAB PO PRN (16:58)
[2023-06-17] MEDS: SODIUM CHLORIDE 0.9% 1,000 ML IV SCH ×2 (18:13→18:26)
[2023-06-17] MEDS ORDERED: ACETAMINOPHEN IV (For NPO) 1,000 MG in EMPTY BAG 1 BAG IVPB ONE (18:30)
[2023-06-18] MEDS ORDERED: LEVOTHYROXINE 88 MCG TAB PO SCH (06:30)
[2023-06-18 08:41] VITALS: BP 108/71; PULSE 76; RESP 15; TEMP 97.5
== END 2023-06-18 10:30 | disposition home or self-care (01) ==
LOC: CATHEP 09:11 → 6NMEDSUR 16:40 → CATHEP 06-18 10:30
PROVIDERS: ATTEND Internal Medicine Clinical Cardiac Electrophysiology
DX: I47.10 Supraventricular tachycardia, unspecified (principal); K21.9 Gastro-esophageal reflux disease without esophagitis; E07.9 Disorder of thyroid, unspecified; Z98.890 Other specified postprocedural states; Z87.891 Personal history of nicotine dependence; Z83.3 Family history of diabetes mellitus
CPT/HCPCS: 93623; 93660; 93653; 86900; 86901; 80048; 85025; 86850; 81025; C1894; C1769; C1760; C1730 ×3; C1893; C1732; J1644; J2001

== ENCOUNTER 2023-10-26 07:21 | Emergency (ER) | payer BC, OTHER ==
[2023-10-26 07:35] VITALS: BP 139/81; PULSE 115; RESP 20; TEMP 98.4
--- NOTE | 2023-10-26 07:43 | ED ---
ENT HPI - General Source: patient, RN notes reviewed Mode of arrival: ambulatory Limitations: no limitations <Jackie Locke - Last Filed: 10/26/23 07:55> <Trisha Salas - Last Filed: 10/26/23 23:49> - General Chief complaint: ENT Stated complaint: FB left ear Time Seen by Provider: 10/26/23 07:41 - History of Present Illness Initial comments: 33-year-old female presented to the ER with a chief complaint of foreign body in left ear. Patient reports it woke her out of her sleep this morning. She states she can feel a "crawling around" in her ear. She denies any pain, fevers or chills. No other complaints at this time. (Jackie Locke) - Related Data Home Medications Medication Instructions Recorded Confirmed Levothyroxine Sodium [Synthroid] 88 mcg PO DAILY 10/24/22 06/17/23 Allergies Allergy/AdvReac Type Severity Reaction Status Date / Time No Known Allergies Allergy Verified 10/26/23 07:26 Review of Systems ROS Other: All systems not noted in ROS Statement are negative. <Jackie Locke - Last Filed: 10/26/23 07:55> ROS Other: All systems not noted in ROS Statement are negative. <Trisha Salas - Last Filed: 10/26/23 23:49> ROS Statement: Those systems with pertinent positive or pertinent negative responses have been documented in the HPI. Past Medical History Past Medical History: GERD/Reflux, Supraventricular Tachycardia (SVT), Syncope, Thyroid Disorder Additional Past Medical History / Comment(s): SEE DR BEAR'S H&P History of Any Multi-Drug Resistant Organisms: None Reported Past Surgical History: Section, Tonsillectomy Additional Past Surgical History / Comment(s): LEEP PROCEDURE Past Anesthesia/Blood Transfusion Reactions: No Reported Reaction Additional Past Anesthesia/Blood Transfusion Reaction / Comment(s): . Past Psychological History: No Psychological Hx Reported Smoking Status: Former smoker Past Alcohol Use History: None Reported Past Drug Use History: None Reported - Past Family History Mother Family Medical History: Diabetes Mellitus Father Family Medical History: No Reported History <Jackie Locke - Last Filed: 10/26/23 07:55> Course Vital Signs 05/25/24 07:22 Temperature 98.4 F Pulse Rate 115 H Respiratory 20 Rate Blood Pressure 139/81 O2 Sat by Pulse 99 Oximetry Procedures - Foreign Body Removal Ear Location: ear canal (L) Foreign Body Suspected: insect (Cockroach) If Insect Suspected: ear canal instilled with Lidocaine Foreign Body Removed: yes Foreign Body Removal Technique: right angle hook Tympanic Membrane Intact: Yes Patient Tolerated Procedure: well, no complications Complications: none <Jackie Locke - Last Filed: 10/26/23 07:55> Medical Decision Making <Jackie Locke - Last Filed: 10/26/23 07:55> - Medical Decision Making Was pt. sent in by a medical professional or institution (, JOVANNY, CONSTRUCTION MANAGER, urgent care, hospital, or [facility]...) When possible be specific @ -No Did you speak to anyone other than the patient for history (EMS, parent, family, police, friend...)? What history was obtained from this source @ -No Did you review nursing and triage notes (agree or disagree)? Why? @ -I reviewed and agree with nursing and triage notes Were old charts reviewed (outside hosp., previous admission, EMS record, old EKG, old radiological studies, urgent care reports/EKG's, [facility] records)? Report findings @ -No old charts were reviewed Differential Diagnosis (chest pain, altered mental status, abdominal pain women, abdominal pain men, vaginal bleeding, weakness, fever, dyspnea, syncope, headache, dizziness, GI bleed, back pain, seizure, CVA, palpatations, mental health, musculoskeletal)? @ -Otitis media, foreign body, mastoiditis this list is not meant to be all-inclusive EKG interpreted by me (3pts min.). @ -None X-rays interpreted by me (1pt min.). @ -None done CT interpreted by me (1pt min.). @ -None done U/S interpreted by me (1pt. min.). @ -None done What testing was considered but not performed or refused? (CT, X-rays, U/S, labs)? Why? @ -None What meds were considered but not given or refused? Why? @ -None Did you discuss the management of the patient with other professionals (professionals i.e. , JOVANNY, CONSTRUCTION MANAGER, lab, RT, psych nurse, manager social services, manager ecommerce, teacher, chief scientific officer, piano case maker)? Give summary @ -No Was smoking cessation discussed for >3mins.? @ -No Was critical care preformed (if so, how long)? @ -No Were there social determinants of health that impacted care today? How? (Homelessness, low income, unemployed, alcoholism, drug addiction, transportation, low edu. Level, literacy, decrease access to med. care, snf, rehab)? @ -No Was there de-escalation of care discussed even if they declined (Discuss DNR or withdrawal of care, Hospice)? DNR status @ -No What co-morbidities impacted this encounter? (DM, HTN, Smoking, COPD, CAD, Cancer, CVA, ARF, Chemo, Hep., AIDS, mental health diagnosis, sleep apnea, morbid obesity)? @ -None Was patient admitted / discharged? Hospital course, mention meds given and route, prescriptions, significant lab abnormalities, going to OR and other pertinent info. @ -Discharge. 33-year-old female presented to the ER with a chief complaint of left ear foreign body. History and physical exam completed. Vitals stable. Patient in no signs of acute distress is unable to remain seated due to the "crawling sensation". Left ear canal inspected and foreign body located. Foreign body believed to be an insect. Lidocaine placed in left ear to kill insect. Insect was removed using right angle hook. Patient tolerated procedure well. Insect was removed in 1 piece. Inspection after removal significant for intact tympanic membrane with no evidence of canal trauma. Canal flush with nor mal saline. Return parameters discussed. Patient discharged in stable condition. Patient verbally expressed understanding and agreement with care plan. Case discussed with ED attending, Dr. Salas. Undiagnosed new problem with uncertain prognosis? @ -No Drug Therapy requiring intensive monitoring for toxicity (Heparin, Nitro, Insulin, Cardizem)? @ -No Were any procedures done? @ -Yes Diagnosis/symptom? @ -Foreign body in ear Acute, or Chronic, or Acute on Chronic? @ -Acute Uncomplicated (without systemic symptoms) or Complicated (systemic symptoms)? @ -Uncomplicated Side effects of treatment? @ -No Exacerbation, Progression, or Severe Exacerbation? @ -No Poses a threat to life or bodily function? How? (Chest pain, [place], [place], pneumonia, PE, COPD, DKA, ARF, appy, cholecystitis, CVA, Diverticulitis, Homicidal, Suicidal, threat to staff... and all critical care pts) @ -No (Jackie Locke) Disposition Is patient prescribed a controlled substance at d/c from ED?: No Time of Disposition: 07:42 <Jackie Locke - Last Filed: 10/26/23 07:55> <Trisha Salas - Last Filed: 10/26/23 23:49> Clinical Impression: Foreign body in ear Disposition: HOME SELF-CARE Condition: Stable Instructions (If sedation given, give patient instructions): Ear Foreign Body (ED) Additional Instructions: Please follow-up with PCP. Return to the ER for any new or worsening symptoms. Referrals: Florence Marley MD [Primary Care Provider] - 1-2 days
== END 2023-10-26 09:25 | disposition home or self-care (01) ==
LOC: EC 07:21
DX: T16.2XXA Foreign body in left ear, initial encounter (principal); Z87.891 Personal history of nicotine dependence
CPT/HCPCS: 69200; 99282

== ENCOUNTER 2024-08-25 09:02 | Emergency (ER) | payer BC, OTHER ==
[2024-08-25 09:06] VITALS: RESP 18
[2024-08-25 09:08] LABS: Glucose,Whole Blood 109 mg/dL (70-110)
--- NOTE | 2024-08-25 09:53 | ED ---
General Adult HPI - General Chief complaint: Dizziness Stated complaint: dizziness,20wks preg Time Seen by Provider: 08/25/24 09:09 Source: patient, RN notes reviewed Mode of arrival: ambulatory Limitations: no limitations - History of Present Illness Initial comments: 34-year-old G3, P2 female at 20 weeks gestation presents to the emergency department for evaluation of lightheadedness. Patient states that this started when she was standing at work today. She notes that she felt she was going to pass out. She notes that she got hot and clammy. She states that this sensation lasted about 45 minutes. She states now that she feels "jittery." She was concerned that it may have been her blood sugar she was diagnosed with gestational diabetes. She wears a Dexcom. She states that her blood glucose at that time was around 160. She takes metformin daily. She denies any recent fever, chills. Denies any urinary symptoms. - Related Data Home Medications Medication Instructions Recorded Confirmed Levothyroxine Sodium [Synthroid] 88 mcg PO DAILY 10/24/22 06/17/23 Previous Rx's Medication Instructions Recorded Cephalexin [Keflex] 500 mg PO Q12HR 7 Days #14 cap 08/25/24 Allergies Allergy/AdvReac Type Severity Reaction Status Date / Time No Known Allergies Allergy Verified 08/25/24 09:06 Review of Systems ROS Statement: Those systems with pertinent positive or pertinent negative responses have been documented in the HPI. ROS Other: All systems not noted in ROS Statement are negative. Past Medical History Past Medical History: GERD/Reflux, Supraventricular Tachycardia (SVT), Syncope, Thyroid Disorder Additional Past Medical History / Comment(s): SEE DR BEAR'S H&P History of Any Multi-Drug Resistant Organisms: None Reported Past Surgical History: Section, Tonsillectomy Additional Past Surgical History / Comment(s): LEEP PROCEDURE Past Anesthesia/Blood Transfusion Reactions: No Reported Reaction Additional Past Anesthesia/Blood Transfusion Reaction / Comment(s): . Past Psychological History: No Psychological Hx Reported Smoking Status: Former smoker Past Alcohol Use History: None Reported Past Drug Use History: None Reported - Past Family History Mother Family Medical History: Diabetes Mellitus Father Family Medical History: No Reported History General Exam Limitations: no limitations General appearance: alert, in no apparent distress Head exam: Present: atraumatic, normocephalic, normal inspection Eye exam: Present: normal appearance, PERRL, EOMI. Absent: scleral icterus, conjunctival injection, periorbital swelling ENT exam: Present: normal exam, mucous membranes moist Neck exam: Present: normal inspection. Absent: tenderness, meningismus, lymphadenopathy Respiratory exam: Present: normal lung sounds bilaterally. Absent: respiratory distress, wheezes, rales, rhonchi, stridor Cardiovascular Exam: Present: regular rate, normal rhythm, normal heart sounds. Absent: systolic murmur, diastolic murmur, rubs, gallop, clicks GI/Abdominal exam: Present: soft, normal bowel sounds. Absent: distended, tenderness, guarding, rebound, rigid Extremities exam: Present: normal inspection, full ROM, normal capillary refill. Absent: tenderness, pedal edema, joint swelling, calf tenderness Back exam: Present: normal inspection Neurological exam: Present: alert, oriented X3 Psychiatric exam: Present: normal affect, normal mood Skin exam: Present: warm, dry, intact, normal color. Absent: rash Course Vital Signs 08/25/24 08/25/24 08/25/24 09:03 10:46 11:59 Temperature 98 F Pulse Rate 97 Pulse Rate [ 96 Apical] Pulse Rate [ 80 Sitting] Pulse Rate [ 97 Standing] Pulse Rate [ 73 Supine] Respiratory 18 Rate Blood Pressure 136/71 Blood Pressure 119/71 [Sitting] Blood Pressure 108/72 [Standing] Blood Pressure 113/72 [Supine] O2 Sat by Pulse 100 Oximetry 08/25/24 13:14 Temperature 98.1 F Pulse Rate 80 Pulse Rate [ Apical] Pulse Rate [ Sitting] Pulse Rate [ Standing] Pulse Rate [ Supine] Respiratory 18 Rate Blood Pressure 115/79 Blood Pressure [Sitting] Blood Pressure [Standing] Blood Pressure [Supine] O2 Sat by Pulse 99 Oximetry Medical Decision Making - Medical Decision Making Was pt. sent in by a medical professional or institution (, PA, SCREED OPERATOR, urgent care, hospital, or fdc...) When possible be specific @ -No Did you speak to anyone other than the patient for history (EMS, parent, family, police, friend...)? What history was obtained from this source @ -No Did you review nursing and triage notes (agree or disagree)? Why? @ -I reviewed and agree with nursing and triage notes Were old charts reviewed (outside hosp., previous admission, EMS record, old EKG, old radiological studies, urgent care reports/EKG's, fdc records)? Report findings @ -No old charts were reviewed Differential Diagnosis (chest pain, altered mental status, abdominal pain women, abdominal pain men, vaginal bleeding, weakness, fever, dyspnea, syncope, headache, dizziness, GI bleed, back pain, seizure, CVA, palpatations, mental health, musculoskeletal)? @ -Differential Dizziness: Benign paroxysmal positional Vertigo, Meniere's disease, otitis media, acoustic neuroma, vertebrobasilar insufficiency, cerebellar stroke, encephalitis, hypovolemic, arrhythmia, coronary artery syndrome, anemia, this is not meant to be an all-inclusive list EKG interpreted by me (3pts min.). @ -EKG at 958 shows sinus rhythm rate 77, SD 143, QRS 93, QTQTc [id number] X-rays interpreted by me (1pt min.). @ -None done CT interpreted by me (1pt min.). @ -None done U/S interpreted by me (1pt. min.). @ -None done What testing was considered but not performed or refused? (CT, X-rays, U/S, labs)? Why? @ -None What meds were considered but not given or refused? Why? @ -None Did you discuss the management of the patient with other professionals (professionals i.e. , PA, SCREED OPERATOR, lab, RT, psych nurse, vp digital marketing social media and crm, evp of products & co founder, teacher, retail loan officer, case consultant)? Give summary @ -No Was smoking cessation discussed for >3mins.? @ -No Was critical care preformed (if so, how long)? @ -No Were there social determinants of health that impacted care today? How? (Homelessness, low income, unemployed, alcoholism, drug addiction, transpo rtation, low edu. Level, literacy, decrease access to med. care, prison, rehab)? @ -No Was there de-escalation of care discussed even if they declined (Discuss DNR or withdrawal of care, Hospice)? DNR status @ -No What co-morbidities impacted this encounter? (DM, HTN, Smoking, COPD, CAD, Cancer, CVA, ARF, Chemo, Hep., AIDS, mental health diagnosis, sleep apnea, morbid obesity)? @ -None Was patient admitted / discharged? Hospital course, mention meds given and route, prescriptions, significant lab abnormalities, going to OR and other pertinent info. @ -Discharge.Patient presented to the emergency department for evaluation of lightheadedness. Laboratory studies obtained revealing no significant leukocytosis, hemoglobin 9.5. Patient has a history of anemia and takes iron supplementation. CMP shows hyponatremia with a sodium 130. She was administered 1 L of normal saline in the emergency department. She does report some improvement in her symptoms following this. UA shows 16 squamous cells, 6 WBCs likely all contamination but due to the patient's gravid state she will be started on antibiotics. Urine will be sent for culture. Patient was tested negative for COVID, influenza, RSV. Patient feeling better will be discharged home. Advised follow-up to her MASS COMMUNICATIONS INSTRUCTOR. She is understanding agreeable with this plan. Patient able at time of discharge. Case discussed with Dr. Bishop. Undiagnosed new problem with uncertain prognosis? @ -No Drug Therapy requiring intensive monitoring for toxicity (Heparin, Nitro, Insulin, Cardizem)? @ -No Were any procedures done? @ -No Diagnosis/symptom? @ -Asymptomatic bacteriuria in , lightheadedness Acute, or Chronic, or Acute on Chronic? @ -Acute Uncomplicated (without systemic symptoms) or Complicated (systemic symptoms)? @ -Uncomplicated Side effects of treatment? @ -No Exacerbation, Progression, or Severe Exacerbation? @ -No Poses a threat to life or bodily function? How? (Chest pain, USA, MA, pneumonia, PE, COPD, DKA, ARF, appy, cholecystitis, CVA, Diverticulitis, Homicidal, Suicidal, threat to staff... and all critical care pts) @ -No - Lab Data Result diagrams: 08/25/24 09:59 08/25/24 09:59 Lab Results 08/25/24 08/25/24 08/25/24 Range/Units 09:07 09:59 09:59 WBC 10.9 H (3.8-10.6) k/uL RBC 4.25 (3.80-5.40) m/uL Hgb 9.5 L (11.4-16.0) gm/dL Hct 30.5 L (34.0-46.0) % MCV 71.8 L (80.0-100.0) fL MCH 22.3 L (25.0-35.0) pg MCHC 31.1 (31.0-37.0) g/dL RDW 14.5 (11.5-15.5) % Plt Count 235 (150-450) k/uL MPV 7.7 Neutrophils % 78 % Lymphocytes % 15 % Monocytes % 4 % Eosinophils % 1 % Basophils % 0 % Neutrophils # 8.5 H (1.3-7.7) k/uL Lymphocytes # 1.6 (1.0-4.8) k/uL Monocytes # 0.5 (0-1.0) k/uL Eosinophils # 0.1 (0-0.7) k/uL Basophils # 0.0 (0-0.2) k/uL Hypochromasia Marked Microcytosis Slight Sodium 130 L (137-145) mmol/L Potassium 4.4 (3.5-5.1) mmol/L Chloride 103 (98-107) mmol/L Carbon Dioxide 21 L (22-30) mmol/L Anion Gap 6 mmol/L BUN 9 (7-17) mg/dL Creatinine 0.61 (0.52-1.04) mg/dL Est GFR (CKD-EPI)AfAm >90 (>60 ml/min/1.73 sqM) Est GFR (CKD-EPI)NonAf >90 (>60 ml/min/1.73 sqM) Glucose 89 (74-99) mg/dL POC Glucose (mg/dL) 109 (70-110) mg/dL POC Glu Bacteriologist Dairy ID [facility] Calcium 9.5 (8.4-10.2) mg/dL Total Bilirubin 0.4 (0.2-1.3) mg/dL AST 20 (14-36) U/L ALT 20 (4-34) U/L Alkaline Phosphatase 71 (38-126) U/L Total Protein 6.7 (6.3-8.2) g/dL Albumin 3.8 (3.5-5.0) g/dL Urine Color Urine Appearance (Clear) Urine pH (5.0-8.0) Ur Specific [place] (1.001-1.035) Urine Protein (Negative) Urine Glucose (UA) (Negative) Urine Ketones (Negative) Urine Blood (Negative) Urine Nitrite (Negative) Urine Bilirubin (Negative) Urine Urobilinogen (<2.0) mg/dL Ur Leukocyte Esterase (Negative) Urine WBC (0-5) /hpf Ur Squamous Epith Cells (0-4) /hpf Urine Bacteria (None) /hpf Urine Mucus (None) /hpf Influenza Type A (PCR) (Not Detectd) Influenza Type B (PCR) (Not Detectd) RSV (PCR) (Not Detectd) SARS-CoV-2 (PCR) (Not Detectd) 08/25/24 08/25/24 08/25/24 Range/Units 10:01 10:05 10:40 WBC (3.8-10.6) k/uL RBC (3.80-5.40) m/uL Hgb (11.4-16.0) gm/dL Hct (34.0-46.0) % MCV (80.0-100.0) fL MCH (25.0-35.0) pg MCHC (31.0-37.0) g/dL RDW (11.5-15.5) % Plt Count (150-450) k/uL MPV Neutrophils % % Lymphocytes % % Monocytes % % Eosinophils % % Basophils % % Neutrophils # (1.3-7.7) k/uL Lymphocytes # (1.0-4.8) k/uL Monocytes # (0-1.0) k/uL Eosinophils # (0-0.7) k/uL Basophils # (0-0.2) k/uL Hypochromasia Microcytosis Sodium (137-145) mmol/L Potassium (3.5-5.1) mmol/L Chloride (98-107) mmol/L Carbon Dioxide (22-30) mmol/L Anion Gap mmol/L BUN (7-17) mg/dL Creatinine (0.52-1.04) mg/dL Est GFR (CKD-EPI)AfAm (>60 ml/min/1.73 sqM) Est GFR (CKD-EPI)NonAf (>60 ml/min/1.73 sqM) Glucose (74-99) mg/dL POC Glucose (mg/dL) 75 (70-110) mg/dL POC Glu Bacteriologist Dairy ID Blake Cho Calcium (8.4-10.2) mg/dL Total Bilirubin (0.2-1.3) mg/dL AST (14-36) U/L ALT (4-34) U/L Alkaline Phosphatase (38-126) U/L Total Protein (6.3-8.2) g/dL Albumin (3.5-5.0) g/dL Urine Color Colorless Urine Appearance Cloudy H (Clear) Urine pH 5.5 (5.0-8.0) Ur Specific [place] 1.010 (1.001-1.035) Urine Protein Negative (Negative) Urine Glucose (UA) Negative (Negative) Urine Ketones Negative (Negative) Urine Blood Negative (Negative) Urine Nitrite Negative (Negative) Urine Bilirubin Negative (Negative) Urine Urobilinogen <2.0 (<2.0) mg/dL Ur Leukocyte Esterase Moderate H (Negative) Urine WBC 6 H (0-5) /hpf Ur Squamous Epith Cells 16 H (0-4) /hpf Urine Bacteria Rare H (None) /hpf Urine Mucus Rare H (None) /hpf Influenza Type A (PCR) Not Detected (Not Detectd) Influenza Type B (PCR) Not Detected (Not Detectd) RSV (PCR) Not Detected (Not Detectd) SARS-CoV-2 (PCR) Not Detected (Not Detectd) Disposition Clinical Impression: 20 weeks gestation of , Dizziness Disposition: HOME SELF-CARE Condition: Stable Instructions (If sedation given, give patient instructions): Dizziness (ED) Additional Instructions: Please follow up with your MASS COMMUNICATIONS INSTRUCTOR. Return to the emergency department for new or worsening symptoms. Prescriptions: Cephalexin [Keflex] 500 mg PO Q12HR 7 Days #14 cap Is patient prescribed a controlled substance at d/c from ED?: No Referrals: Florence Marley MD [Primary Care Provider] - 1-2 days
[2024-08-25 10:04] LABS: Basophils % (A) 0 %; Eosinophils # (A) 0.1 k/uL (0-0.7); Eosinophils % (A) 1 %; HCT 30.5 % (34.0-46.0); HGB 9.5 gm/dL (11.4-16.0); Hypochromasia Marked; Lymphocytes # (A) 1.6 k/uL (1.0-4.8); Lymphocytes % (A) 15 %; MCH 22.3 pg (25.0-35.0); MCHC 31.1 g/dL (31.0-37.0); MCV 71.8 fL (80.0-100.0); Mean Platelet Volume 7.7; Microcytosis Slight; Monocytes # (A) 0.5 k/uL (0-1.0); Monocytes % (A) 4 %; Neutrophils # (A) 8.5 k/uL (1.3-7.7); Neutrophils % (A) 78 %; Platelet Count 235 k/uL (150-450); RBC 4.25 m/uL (3.80-5.40); RDW 14.5 % (11.5-15.5); WBC 10.9 k/uL (3.8-10.6)
[2024-08-25 10:14] LABS: ALT 20 U/L (4-34); AST 20 U/L (14-36); African American GFR (CKD) >90 (>60 ml/min/1.73 sqM); Albumin 3.8 g/dL (3.5-5.0); Alkaline Phosphatase 71 U/L (38-126); Anion Gap 6 mmol/L; Blood Urea Nitrogen 9 mg/dL (7-17); Calcium 9.5 mg/dL (8.4-10.2); Carbon Dioxide 21 mmol/L (22-30); Chloride 103 mmol/L (98-107); Glucose 89 mg/dL (74-99); Non-African American GFR(CKD) >90 (>60 ml/min/1.73 sqM); Potassium 4.4 mmol/L (3.5-5.1); Sodium 130 mmol/L (137-145); Total Bilirubin 0.4 mg/dL (0.2-1.3); Total Protein 6.7 g/dL (6.3-8.2)
[2024-08-25] MEDS: SODIUM CHLORIDE 0.9% 1,000 ML IV ONE (10:33)
[2024-08-25 10:39] LABS: Influenza A Not Detected (Not Detectd); Influenza B Not Detected (Not Detectd); RSV Not Detected (Not Detectd)
[2024-08-25 10:41] LABS: Glucose,Whole Blood 75 mg/dL (70-110)
[2024-08-25 10:54] LABS: Appearance,Urine Cloudy (Clear); Bacteria,Urine Rare /hpf; Bilirubin,Urine Negative (Negative); Blood,Urine Negative (Negative); Color,Urine Colorless; Glucose,Urine (UA) Negative (Negative); Ketones,Urine Negative (Negative); Leukocyte Esterase,Urine Moderate (Negative); Mucus,Urine Rare /hpf; Nitrite,Urine Negative (Negative); PH, Urine 5.5 (5.0-8.0); Protein,Urine Negative (Negative); Squamous Epithelial Cell,Urine 16 /hpf (0-4); Urobilinogen,Urine <2.0 mg/dL (<2.0); WBC,Urine 6 /hpf (0-5)
[2024-08-25 13:16] VITALS: BP 115/79; PULSE 80; TEMP 98.1
== END 2024-08-25 13:19 | disposition home or self-care (01) ==
LOC: EC 09:02
DX: O26.892 Other specified pregnancy related conditions, second trimester (principal); R42 Dizziness and giddiness; Z87.891 Personal history of nicotine dependence; Z11.52 Encounter for screening for COVID-19; Z3A.20 20 weeks gestation of pregnancy
CPT/HCPCS: 36415; 80053; 81001; 85025; 87636; 93005; 96360; 99284

== ENCOUNTER 2024-10-06 08:48 | Outpatient (CLI) | payer BC, OTHER ==
[2024-10-06 09:18] LABS: Glucose,Whole Blood 113 mg/dL (70-110)
[2024-10-06] MEDS: ACETAMINOPHEN TAB 500 MG TAB PO STA (09:29)
[2024-10-06 10:42] VITALS: BP 114/56; PULSE 98; RESP 18; TEMP 97.2
--- NOTE | 2024-10-14 20:24 | P.MSEPDOC ---
Presenting Problems - Arrival Data Date of Arrival on Unit: 10/06/24 Time of Arrival on Unit: 08:48 Mode of Transport: Ambulatory - Complaint OB-Reason for Admission/Chief Complaint: Headache Medical History - Information : 4 Para: 2 Term: 2 : 0 Abortions: Spontaneous or Elective: 1 Number of Living Children: 2 - Gestational Age Gestational Age by FILEMON (wks/days): 25 Weeks and 6 Days Review of Systems - Review of Systems Constitutional: No problems Breast: No problems ENT: No problems Cardiovascular: No problems Respiratory: No problems Gastrointestinal: No problems Genitourinary: No problems Musculoskeletal: No problems Neurological: No problems Skin: No problems Vital Signs - Temperature Temperature: 97.2 F Temperature Source: Temporal Artery Scan - Pulse Right Pulse Rate: 98 Pulse Assessment Method: Automatic Cuff - Respirations Respiratory Rate: 18 Oxygen Delivery Method: Room Air O2 Sat by Pulse Oximetry: 99 - Blood Pressure Right Arm Blood Pressure: 114/56 Blood Pressure Mean: 75 Blood Pressure Source: Automatic Cuff Physician Notification - Physician Notified Physician Notified Date: 10/06/24 Physician Notified Time: 09:20 Physician: Alem Bernstein Order Received: Yes (Hydrate and Tylenol 1000mg) - Notification Comment Comment: 1020, pt feeling better, discharge home per Dr Bernstein Maternal Triage Index - Maternal Triage Index Presenting for scheduled procedure w/no complaint: No - Stat/Priority 1 Stat Priority 1: No - Urgent/Priority 2 Urgent Priority 2: No - Prompt/Priority 3 Prompt Priority 3: No - Non-Urgent/Priority 4 Non-Urgent Priority 4: Yes Criteria Met for Priority 4: Headache, low b/p Disposition - Disposition OB Disposition: Discharge to home Discharge Date: 10/06/24 Discharge Time: 10:30 I agree with the RN Medical Screening Exam: Yes Physician's MSE Comment: I have neither seen no examined the patient Case reviewed; plan agreed upon as documented in EMR&OBIX.: Yes Diagnosis: RELATED CONDITIONS, UNSPECIFIED, SECOND TRIMESTER
== END 2024-10-06 10:30 | disposition home or self-care (01) ==
LOC: FBPOP 08:48
PROVIDERS: ATTEND Obstetrics & Gynecology
DX: O26.892 Other specified pregnancy related conditions, second trimester (principal); Z3A.25 25 weeks gestation of pregnancy; Z87.891 Personal history of nicotine dependence
CPT/HCPCS: 99213

== ENCOUNTER 2024-11-24 15:07 | Outpatient (CLI) | payer BC, OTHER ==
[2024-11-24 15:25] LABS: Glucose,Whole Blood 227 mg/dL (70-110)
[2024-11-24 15:53] LABS: Appearance,Urine Clear (Clear); Bilirubin,Urine Negative (Negative); Color,Urine Light Yellow; Glucose,Urine (UA) 4+ (Negative); Ketones,Urine Negative (Negative); Protein,Urine Negative (Negative); Specific Gravity,Urine 1.028 (1.001-1.035)
[2024-11-24 15:54] LABS: Blood,Urine Negative (Negative); Leukocyte Esterase,Urine Negative (Negative); Nitrite,Urine Negative (Negative); Urobilinogen,Urine <2.0 mg/dL (<2.0)
[2024-11-24] MEDS: LACTATED RINGERS 1,000 ML IV ONE (16:11)
[2024-11-24 17:17] VITALS: BP 120/66; PULSE 103; RESP 16; TEMP 96.8
--- NOTE | 2024-12-11 13:34 | P.MSEPDOC ---
Presenting Problems - Arrival Data Date of Arrival on Unit: 11/24/24 Time of Arrival on Unit: 15:07 Mode of Transport: Ambulatory - Complaint OB-Reason for Admission/Chief Complaint: Possible Onset of Labor Comment: Patient presents to triage for cramping, and lower back pain. Medical History - Information : 3 Para: 2 Term: 2 : 0 Abortions: Spontaneous or Elective: 1 Number of Living Children: 2 - Gestational Age Gestational Age by FILEMON (wks/days): 32 Weeks and 6 Days - History Complications: GDM Review of Systems - Review of Systems Constitutional: No problems Breast: No problems ENT: No problems Cardiovascular: No problems Respiratory: No problems Gastrointestinal: No problems Genitourinary: No problems Musculoskeletal: No problems Neurological: No problems Skin: No problems Vital Signs - Temperature Temperature: 96.8 F Temperature Source: Temporal Artery Scan - Pulse Pulse Oximetery Pulse Rate: 103 Pulse Assessment Method: Pulse Oximetry - Respirations Respiratory Rate: 16 Oxygen Delivery Method: Room Air - Blood Pressure Right Arm Blood Pressure: 120/66 Blood Pressure Mean: 84 Blood Pressure Source: Automatic Cuff Physician Notification - Physician Notified Physician Notified Date: 11/24/24 Physician Notified Time: 15:39 Physician: Alem Bernstein Maternal Triage Index - Maternal Triage Index Presenting for scheduled procedure w/no complaint: No - Stat/Priority 1 Stat Priority 1: No - Urgent/Priority 2 Urgent Priority 2: No - Prompt/Priority 3 Prompt Priority 3: Yes Criteria Met for Priority 3: Patient presents to triage for cramping, and lower back pain. Disposition - Disposition OB Disposition: Discharge to home Discharge Date: 11/24/24 Discharge Time: 17:18 I agree with the RN Medical Screening Exam: Yes Physician's MSE Comment: I have neither seen nor examined the patient Case reviewed; plan agreed upon as documented in EMR&OBIX.: Yes Diagnosis: FALSE LABOR, UNSPECIFIED
== END 2024-11-24 17:19 ==
LOC: FBPOP 15:07
PROVIDERS: ATTEND Obstetrics & Gynecology
DX: O47.03 False labor before 37 completed weeks of gestation, third trimester (principal); Z3A.32 32 weeks gestation of pregnancy; Z87.891 Personal history of nicotine dependence
CPT/HCPCS: 59025; 81003; 96360; 99213; 99214

== ENCOUNTER 2024-11-25 09:55 | Outpatient (CLI) | payer BC, OTHER ==
[2024-11-25 10:43] VITALS: BP 117/64; PULSE 98; RESP 18; TEMP 96.4
== END 2024-11-25 10:43 | disposition home or self-care (01) ==
LOC: FBPOP 09:55
PROVIDERS: ATTEND Obstetrics & Gynecology
DX: O24.419 Gestational diabetes mellitus in pregnancy, unspecified control (principal); Z3A.00 Weeks of gestation of pregnancy not specified; Z79.899 Other long term (current) drug therapy
CPT/HCPCS: 59025

== ENCOUNTER 2024-12-24 10:00 | Inpatient (IN) | payer BC, OTHER ==
[2024-12-24] MEDS ORDERED: OXYTOCIN 10 UNIT/ML 1 ML VIAL IM PRN (10:18)
[2024-12-24] MEDS ORDERED: METHYLERGONOVINE 0.2 MG/ML 1 ML AMP IM PRN (10:18)
[2024-12-24] MEDS ORDERED: TRANEXAMIC 1,000 MG/100ML-NACL 1,000 MG in EMPTY BAG 1 BAG IV PRN (10:18)
[2024-12-24] MEDS ORDERED: CARBOPROST TROMETHAMINE 250 MCG/ML 1 ML AMP IM PRN (10:18)
[2024-12-24 10:31] LABS: Glucose,Whole Blood 162 mg/dL (70-110)
[2024-12-24] MEDS: LACTATED RINGERS 1,000 ML IV SCH ×2 (10:37→20:34)
[2024-12-24 10:43] LABS: Basophils # (A) 0.02 10*3/uL (0.00-0.10); Basophils % (A) 0.2 %; Eosinophils # (A) 0.06 10*3/uL (0.04-0.35); Eosinophils % (A) 0.6 %; HCT 28.5 % (37.2-46.3); HGB 8.3 g/dL (12.0-15.0); Immature Platelet Fraction 8.4 % (1.1-6.1); Lymphocytes # (A) 1.56 10*3/uL (0.90-5.00); Lymphocytes % (A) 16.7 %; MCH 19.8 pg (27.0-32.0); MCHC 29.1 g/dL (32.0-37.0); MCV 67.9 fL (80.0-97.0); Monocytes # (A) 0.49 10*3/uL (0.20-1.00); Monocytes % (A) 5.3 %; Neutrophils # (A) 7.14 10*3/uL (1.80-7.70); Neutrophils % (A) 76.7 %; Platelet Count 218 10*3/uL (140-440); RBC 4.20 10*6/uL (4.10-5.20); RDW 17.5 % (11.5-14.5); WBC 9.32 10*3/uL (4.50-10.00)
[2024-12-24] MEDS: CITRIC ACID-SODIUM CITRATE 15 ML CUP PO ONE (11:33)
[2024-12-24] MEDS ORDERED: OXYTOCIN 30 UNITS/500 ML NS BAG IV ONE (12:01)
[2024-12-24] MEDS ORDERED: MORPHINE SULFATE (PF) 0.3 MG/0.3 ML SYR ONE (12:01)
[2024-12-24] MEDS ORDERED: MIDAZOLAM 2 MG/2 ML VIAL ONE (12:01)
[2024-12-24] MEDS ORDERED: ONDANSETRON 4 MG/2 ML VIAL ONE (12:01)
[2024-12-24] MEDS ORDERED: NALBUPHINE (ANES) 10 MG/ML - 1 ML AMP ONE (12:01)
[2024-12-24] MEDS ORDERED: KETOROLAC 15 MG/ML 1 ML VIAL ONE (12:01)
--- NOTE | 2024-12-24 12:06 | P.HPOB ---
History of Present Illness H&P Date: 12/24/24 Chief Complaint: Repeat Section Ms. Weathers is a 34 year old at 37 weeks and 1 with EDC of 01/13/2025 who presents for scheduled repeat section. She has had 2 prior sections. She has been followed by M and endocrinology this for blood sugar management with poor control of sugars throughout the , regular post-prandial readings in the 200s. She has also undergone surveillance with growth US and NSTs in the third trimester. The fetus is estimated to weight in the 94%ile based on a 36 week US. The patient also has hypothyroidism on synthroid and followed by endocrine. Finally, she has a history of cardiac ablation. work-up: blood type B positive, antibody screen negative, rubella immun, VDRL non-reactive, HIV negative, HCV non-reactive, gonorrhea negative, chlamydia negative, early 1 hour GTT 197 (elevated), GBS negative. Obstetric history: 2 FTCS Past Medical History Past Medical History: GERD/Reflux, Supraventricular Tachycardia (SVT), Syncope, Thyroid Disorder Additional Past Medical History / Comment(s): SEE DR BEAR'S H&P, cardiac ablation for a fib? History of Any Multi-Drug Resistant Organisms: None Reported Past Surgical History: Section, Tonsillectomy Additional Past Surgical History / Comment(s): LEEP PROCEDURE, cardiac ablation Past Anesthesia/Blood Transfusion Reactions: No Reported Reaction Additional Past Anesthesia/Blood Transfusion Reaction / Comment(s): . Past Psychological History: No Psychological Hx Reported Smoking Status: Never smoker Past Alcohol Use History: None Reported Additional Past Alcohol Use History / Comment(s): Quit smoking in 2018, started smoking at age 18, <1ppd. Past Drug Use History: None Reported - Past Family History Mother Family Medical History: Diabetes Mellitus Father Family Medical History: No Reported History Medications and Allergies Home Medications Medication Instructions Recorded Confirmed Type Levothyroxine Sodium [Synthroid] 150 mcg PO DAILY 10/24/22 12/24/24 History Aspirin 81 mg PO DAILY 10/06/24 12/24/24 History metFORMIN HCL [Glucophage] 500 mg PO BID 10/06/24 12/24/24 History Insulin Glargine (Lantus) [Lantus 100 unit SQ HS 11/24/24 12/24/24 History Vial] Insulin Lispro 10 units SQ TID-W/MEALS 11/24/24 12/24/24 History Allergies Allergy/AdvReac Type Severity Reaction Status Date / Time No Known Allergies Allergy Verified 12/24/24 10:16 Exam Vital Signs Temp Pulse Resp BP Pulse Ox 12/24/24 10:30 97.0 F L 81 18 132/65 100 Intake and Output 12/23/24 12/24/24 12/24/24 22:59 06:59 14:59 Other: Weight 140.614 kg Focused physical exam is performed. This is a healthy-appearing in no apparent distress. Breathing is non-labored. Abdomen is gravid and non-tender. Extremeties non-tender and non-edematous. heart tones are reactive and reassuring on NST. Results Result Diagrams: 12/24/24 10:26 Abnormal Lab Results - Last 24 Hours (Table) 12/24/24 12/24/24 Range/Units 10:26 10:29 Hgb 8.3 L (12.0-15.0) g/dL Hct 28.5 L (37.2-46.3) % MCV 67.9 L (80.0-97.0) fL MCH 19.8 L (27.0-32.0) pg MCHC 29.1 L (32.0-37.0) g/dL Immature Gran # 0.05 H (0.00-0.04) 10*3/uL Immature Plt Fraction 8.4 H (1.1-6.1) % POC Glucose (mg/dL) 162 H (70-110) mg/dL Assessment and Plan Assessment: 34 year old at 37 weeks and 1 day presenting for scheduled repeat section, complicated by poorly controlled gestational diabetes Plan: Admit, NPO, initiate protocol
[2024-12-24] MEDS ORDERED: diphenhydrAMINE 25 MG CAP PO PRN (13:02)
[2024-12-24] MEDS ORDERED: diphenhydrAMINE 50 MG/ML 1 ML VIAL IVP PRN ×2 (13:02)
[2024-12-24] MEDS ORDERED: NALOXONE 0.4 MG/ML 1 ML VIAL IV PRN (13:02)
[2024-12-24] MEDS ORDERED: SIMETHICONE 80 MG CHEWABLE PO PRN (13:02)
[2024-12-24] MEDS ORDERED: METOCLOPRAMIDE 5 MG/ML 2 ML VIAL IVP PRN (13:02)
[2024-12-24] MEDS ORDERED: ZOLPIDEM 5 MG TAB PO PRN (13:02)
[2024-12-24] MEDS ORDERED: ONDANSETRON 4 MG/2 ML VIAL IVP PRN (13:02)
--- NOTE | 2024-12-24 13:02 | P.OP ---
Date of Procedure: 12/24/24 Preoperative Diagnosis: 1. Term IUP at 37 weeks and 1 day 2. Uncontrolled Gestational Diabetes A2 Postoperative Diagnosis: Same Procedure(s) Performed: Repeat Lower Transverse Section Implants: None Anesthesia: spinal Surgeon: Alem Bernstein Television Technician #1: Wilver Menon Estimated Blood Loss (ml): 377 Urine output (ml): 100 Pathology: none sent Condition: stable Disposition: floor Indications for Procedure: Ms. Weathers is a 34 year old at 37 weeks and 1 days with uncontrolled GDMA2 who presents for scheduled repeat section. The risks, benefits, and alternatives to section were discussed with the patient including risk of bleeding, infection, damage to surrounding structures including bladder/bowels/ureters, and post-operative VTE. The patient understands these risks and desires to proceed with section. Operative Findings: Clear amniotic fluid. Viable male infant in cephalic presentation. One nuchal cord. Apgars 9/9. Weight 8 pounds and 6 ounces (3800 grams). Very minimal adhesive disease. Description of Procedure: The patient was taken back to the operating room where spinal anesthesia was found to be adequate. Three grams of Ancef were given for infection prophylaxis. She was prepared and draped in the dorsal supine position with a leftward tilt. A Pfannenstiel skin incision was made with the scalpel. The incision was carried down to the fascia with a bovie. The fascia was incised and extended laterally with Guerra scissors. The superior aspect of the fascia was grasped with the Jocy clamps. The underlying rectus muscle was dissected off sharply with Guerra scissors. In a similar fashion, the inferior aspect of the fascia was elevated with Jocy clamps and the rectus muscle and pyramidalis were dissected off. Excellent hemostasis was achieved with the bovie. The rectus muscle was in the midline down to the level of the pubic symphysis. Pre- peritoneal fatty tissue was bluntly dissected to expose the peritoneum. The peritoneum was found to be free of adherent bowel and entered sharply with Guerra scissors. The peritoneal incision was extended superiorly and inferiorly to the bladder reflection with good visualization of the bladder. The bladder blade was inserted and vesicouterine peritoneum was identified. Intraabdominal survey revealed scant, clear peritoneal fluid and the thinned-out lower uterine segment. The vesicouterine peritoneum was opened with scissors and the bladder flap was developed. The bladder blade was repositioned to keep the bladder out of the operative field. The lower uterine segment was incised with a scalpel. The amniotic sac was ruptured with an Allis clamp and clear fluid was noted. The uterine incision was extended bluntly with lateral and upward traction. The fetus was in cephalic presentation. The head was elevated out of the pelvis with special attention paid to avoid using the uterine incision as a fulcrum. Gentle fundal pressure was applied once the head was brought into the incision. One nuchal cord was reduced. The infant was delivered with no difficulty and was noted to be crying spontaneously. The mouth and nose were suctioned with a bulb. The cord was clamped and cut. The was handed off to the tour driver. IV oxytocin was initiated to facilitate uterine contractions. The placenta was delivered intact with manual massage of uterine fundus. The uterus was then exteriorized and the inside of the uterus was gently wiped with a lap sponge to assure complete removal of placental membranes. The uterine incision was closed with 0-Vicryl suture in a running locked fashion. A second imbricating layer was placed with 0-Vicryl. The ovaries and tubes were found to be normal. The uterus, tubes, and ovaries were then gently returned to the abdominal cavity. The abdomen was copiously suction irrigated. The uterine incision was reinspected and excellent hemostasis was noted. The fascial layer was closed with a 0-Vicryl suture. The subcutaneous tissue was reapproximated with 2-0 Plain Gut. The skin was closed with 4-0 Monocryl in a subcuticular fashion.The patient tolerated the procedure well. All the counts were correct times two. The patient was taken to the recovery room in a stable condition. A physician surgical services director was utilized for the entire procedure due to the need for tissue retraction, dissection of vital structures, prevention and management of blood loss, and reduction in overall operative and anesthesia time as is the standard of care.
[2024-12-24] MEDS: SENNOSIDES-DOCUSATE SODIUM 1 EACH TAB PO SCH (17:32)
[2024-12-24] MEDS: ACETAMINOPHEN TAB 500 MG TAB PO SCH (17:33)
[2024-12-24] MEDS: KETOROLAC 15 MG/ML 1 ML VIAL IVP SCH (19:59)
[2024-12-24 20:14] LABS: Glucose,Whole Blood 164 mg/dL (70-110)
[2024-12-25 05:44] LABS: Glucose,Whole Blood 137 mg/dL (70-110)
[2024-12-25 06:28] LABS: Basophils # (A) 0.03 10*3/uL (0.00-0.10); Basophils % (A) 0.4 %; Eosinophils # (A) 0.10 10*3/uL (0.04-0.35); Eosinophils % (A) 1.3 %; HCT 22.9 % (37.2-46.3); Lymphocytes # (A) 1.44 10*3/uL (0.90-5.00); Lymphocytes % (A) 19.0 %; MCH 19.7 pg (27.0-32.0); MCHC 28.8 g/dL (32.0-37.0); MCV 68.4 fL (80.0-97.0); Monocytes # (A) 0.49 10*3/uL (0.20-1.00); Monocytes % (A) 6.5 %; Neutrophils # (A) 5.48 10*3/uL (1.80-7.70); Neutrophils % (A) 72.3 %; Platelet Count 174 10*3/uL (140-440); RBC 3.35 10*6/uL (4.10-5.20); RDW 17.7 % (11.5-14.5); WBC 7.58 10*3/uL (4.50-10.00)
[2024-12-25 07:02] LABS: HGB 6.6 g/dL (12.0-15.0)
[2024-12-25] MEDS: SODIUM FERRIC GLUCONAT-SUCROSE 125 MG in SODIUM CHLORIDE 0.9% 100 ML IVPB ONE (07:50)
--- NOTE | 2024-12-25 09:49 | P.PNOBGPC ---
Subjective - Subjective Principal diagnosis: s/p repeat cearean section Interval history: The patient is doing well this morning and had no acute events overnight. She has no complaints this morning. She reports minimal lochia, passing flatus, voiding without difficulty, ambulating, and eating/drinking without nausea or vomiting. She is breast and formula feeding her infant without difficulty. She denies chest pain, shortness of breathing, fevers, or chills overnight. She denies pain or swelling in the legs. Patient reports: Reports appetite normal, Reports voiding normally, Reports pain well controlled, Reports ambulating normally : doing well, nursing well Objective - Vital Signs Latest vital signs: Vital Signs Temp Pulse Resp BP Pulse Ox 12/25/24 08:00 98 F 80 17 103/70 98 12/25/24 00:00 98.1 F 84 16 107/69 97 12/24/24 20:00 98.1 F 71 16 106/66 97 12/24/24 17:02 98.0 F 79 16 118/60 12/24/24 15:02 73 16 112/62 12/24/24 14:47 98.1 F 80 16 115/62 12/24/24 14:32 77 16 110/60 12/24/24 14:17 98.1 F 74 16 116/55 12/24/24 14:02 98.2 F 73 16 108/53 12/24/24 13:47 71 16 106/57 97 12/24/24 13:32 74 16 116/57 97 12/24/24 13:17 87 16 126/56 97 12/24/24 13:02 96.6 F L 92 16 128/60 98 12/24/24 10:30 97.0 F L 81 18 132/65 100 Intake and Output 12/24/24 12/25/24 12/25/24 22:59 06:59 14:59 Intake Total 150 600 Output Total 825 1150 Balance -675 -550 Intake: IV 150 Oral 600 Output: Urine 350 1150 Uretheral (Christie) 350 Output, Quantitative 475 Blood Loss Other: # Voids 1 - Exam Extremities: Present: normal Abdomen: Present: normal appearance, soft Incision: Present: normal, dry, intact Uterus: Present: normal, firm - Labs Labs: Abnormal Lab Results - Last 24 Hours (Table) 12/24/24 12/24/24 12/24/24 Range/Units 10:26 10:29 20:12 RBC (4.10-5.20) 10*6/uL Hgb 8.3 L (12.0-15.0) g/dL Hct 28.5 L (37.2-46.3) % MCV 67.9 L (80.0-97.0) fL MCH 19.8 L (27.0-32.0) pg MCHC 29.1 L (32.0-37.0) g/dL Immature Gran # 0.05 H (0.00-0.04) 10*3/uL Immature Plt Fraction 8.4 H (1.1-6.1) % POC Glucose (mg/dL) 162 H 164 H (70-110) mg/dL 12/25/24 12/25/24 Range/Units 05:43 06:12 RBC 3.35 L (4.10-5.20) 10*6/uL Hgb 6.6 L* D (12.0-15.0) g/dL Hct 22.9 L (37.2-46.3) % MCV 68.4 L (80.0-97.0) fL MCH 19.7 L (27.0-32.0) pg MCHC 28.8 L (32.0-37.0) g/dL Immature Gran # (0.00-0.04) 10*3/uL Immature Plt Fraction (1.1-6.1) % POC Glucose (mg/dL) 137 H (70-110) mg/dL Assessment and Plan Assessment: 34 year old now POD#1 s/p repeat section Plan: 1. Postoperative. Patient meeting milestones appropriately. 2. Gestational diabetes, likely undiagnosed Type 2 Diabetes. BS still elevated . c/Medicine. 3. Viable male infant. Doing well at bedside. Parents do not desire circumcision. Dispo: Continue inpatient management at this time.
--- NOTE | 2024-12-25 13:17 | P.PN ---
Progress Note - Text 12/25/24 631am 34-year-old female status post with spinal Duramorph. Patient seen and evaluated for postop pain control, she has a VAS of 2, she has mild pruritus which should subside. Otherwise doing well
[2024-12-25] MEDS: IBUPROFEN 800 MG TAB PO SCH (20:40)
--- NOTE | 2024-12-25 23:50 | P.CON ---
Consult Note - . Consult date: 12/25/24 Assessment/Plan:: Patient is a 34-year-old female with a PMH of Hypothyroidism, a consult for management of probably undiagnosed diabetes mellitus type 2. Patient is here status post repeat . She had gestational diabetes during her . After giving yesterday, her sugar levels are still elevated. Patient denied diagnosis of diabetes mellitus before , and denied taking any medications for it. Patient stated only having hypothyroidism on Synthroid. No HbA1c on file. Patient denied symptoms of polyuria, polydipsia. Denied fever, headache, change in vision, chest pain, shortness of breath, muscle weakness, numbness or tingling, diarrhea, nausea or vomiting. Labs WBC 7.58, Hgb 6.6, HCT 22.9, plt count 28.8 Vitals T 98.4 F, HR 84, RR 16, BP 94/56, O2 sat 97% on RA Review of systems: Pertinent positives and negatives as discussed in HPI, a complete review of systems was performed and all other systems are negative. Physical examination: Vital signs reviewed General: no acute distress, well-nourished, obese Derm: warm, dry, and well perfused. No lesions, nodules or rashes are noted Head: normocephalic and atraumatic Eyes: EOMI, anicteric sclera ENT: nose and ears atraumatic Neck: supple, no appreciable thyromegaly Mouth: no lip lesion, mucus membranes moist Cardiovascular: normal S1S2, no murmur or gallops, no edema Lungs: clear to auscultation bilaterally, no wheezes or crackles or rhonchi, no accessory muscle use Abdominal: nontender to palpation, no guarding, no rebound, no appreciable organomegaly Ext: muscle strength 5 out of 5 in all 4 extremities grossly, no gross muscle atrophy Neuro: no focal sensory or motor deficits are noted Psych: Alert, oriented x3 Assessment/Plan: #. management of undiagnosed type 2 diabetes mellitus - Glucose blood levels around 135 - Check HbA1c - Start on insulin sliding scale - Consider diabetes mellitus treatment on discharge based on HbA1c - Outpatient follow-up with PCP #. Status post repeat section #. Gestational diabetes - at 37 weeks, baby at 94th percentile on ultrasound # acute on chronic microcytic anemia post C section repeat CBC in AM transfuse if confirmed Hgb < 6.5 #. Hypothyroidism - on Levothyroxine #. Obesity class III - BMI 53.2 kg/m2 Counseled patient on importance of losing weight on improving blood glucose levels and insulin sensitivity. DVT prophylaxis: mechanical due to acute anemia post op , rule out ongoing bleeding The patient is admitted with an anticipated less than 2 midnight stay for evaluation of high blood glucose levels CODE STATUS: Full code Discussed with: Dr. Cavanaugh Anticipated discharge place: Home Murray Neely MD PGY-1 IM Dictation was produced using i-marker dictation software. please excuse any grammatical, word or spelling errors. I have seen and evaluated the patient today. I Discussed the case with the resident and agree with the resident's findings I edited the assessment and plan as necessary as documented in the resident's note.
[2024-12-25] MEDS ORDERED: DEXTROSE 50% SYRINGE 50 ML IVP PRN ×2 (23:57)
[2024-12-26 07:56] LABS: Basophils # (A) 0.03 10*3/uL (0.00-0.10); Basophils % (A) 0.4 %; Eosinophils # (A) 0.15 10*3/uL (0.04-0.35); Eosinophils % (A) 2.0 %; HCT 20.5 % (37.2-46.3); Lymphocytes # (A) 1.44 10*3/uL (0.90-5.00); Lymphocytes % (A) 18.9 %; MCH 19.7 pg (27.0-32.0); MCHC 28.8 g/dL (32.0-37.0); MCV 68.3 fL (80.0-97.0); Monocytes # (A) 0.51 10*3/uL (0.20-1.00); Monocytes % (A) 6.7 %; Neutrophils # (A) 5.45 10*3/uL (1.80-7.70); Neutrophils % (A) 71.5 %; Platelet Count 182 10*3/uL (140-440); RBC 3.00 10*6/uL (4.10-5.20); RDW 17.7 % (11.5-14.5); WBC 7.62 10*3/uL (4.50-10.00)
[2024-12-26 08:10] LABS: HGB 5.9 g/dL (12.0-15.0)
[2024-12-26 08:38] LABS: Glucose,Whole Blood 201 mg/dL (70-110)
[2024-12-26] MEDS: INSULIN LISPRO (HumaLOG) 100 UNIT/ML 10 mL VL SQ SCH (08:49)
[2024-12-26 10:31] VITALS: RESP 18
--- NOTE | 2024-12-26 11:23 | P.DS ---
Providers Date of admission: 12/24/24 10:00 Expected date of discharge: 12/26/24 Attending physician: Alem Bernstein MD Consults: 12/25/24 09:32 Consult Physician Routine Consulting Provider: Hector Us Consult Reason/Comments: likely type 2 diabetes Do you want consulting provider notified?: Yes Primary care physician: Florence Marley - Discharge Diagnosis(es) (1) Status post section Current Visit: Yes Status: Acute (2) Anemia Current Visit: Yes Status: Acute Hospital Course: The patient is a 34-year-old 4 para 2-0-1-2 admitted at 37 and 1 day by good dating parameters. She is admitted with a history of 2 previous sections for repeat section. She has been followed by both maternal- medicine and endocrinology for blood sugar management secondary to poor sugar control throughout the . surveillance on a weekly basis after 32 weeks was reassuring. She is thought to have a large for gestational age fetus based upon 36-week ultrasound at the 94th percentile. On labor delivery, all signs were reassuring with a category 1 heart rate tracing. Admission hemoglobin and hematocrit were moderately anemic at 8.3 and 28.5 respectively. She was taken to the operating room where she was delivered of a viable 8 pound 6 ounce baby boy with Apgars of 9 at 1 minute and 9 at 5 minutes. Her and postoperative course was essentially unremarkable though she was found to have a low hemoglobin on day #1 in the range of 6.5 at which time iron infusions were ordered on a daily basis. She additionally had a hospitalist consultation to help manage blood sugars. Hemoglobin the following day on and postoperative day #2 returned at 5.9 and was deemed critical. The patient remained asymptomatic despite the low hemoglobin. Nevertheless, 1 unit of packed red blood cells was ordered with then intended repeat hemoglobin 6 hours after infusion. Given her lack of symptomatology and the assumption that her hemoglobin will rise to above 7 and given her low baseline hemoglobin without symptoms, the decision was made that she was stable for discharge on and postoperative day #2. She was therefore discharged home to follow-up in the office in 2 weeks for incision check in 6 weeks routinely. Internal medicine is making recommendations regarding her follow-up with both primary care and endocrinology and for further management of her diabetes. Discharge instructions included calling for any significantly increased bleeding or foul-smelling lochia, significantly increased fever abdominal pain, perineal complaints, breast complaints, incisional complaints, or anything else that concerned her. She was additionally instructed to have nothing in the vagina for at least 6 weeks time to include intercourse. She understood her instructions and agrees to follow-up as noted above. Discharge medications included continued vitamins as well as [id number] analgesic pain medications. She was provided a prescription for oxycodone 5 mg, 1-2 p.o. every 6 hours as needed pain, #20 dispensed with no refills. Maternal blood type is B+ and rubella status is immune. To clarify her diagnosis of anemia, she had both presurgical chronic anemia, likely iron deficient and then had acute blood loss anemia from her surgery ultimately requiring 1 unit of packed red blood cells. Procedures: #1. Repeat low-transverse section #2. Internal medicine consultation #3. Daily iron infusions #4. Transfusion 1 unit packed red blood cells Patient Condition at Discharge: Stable Plan - Discharge Summary New Discharge Prescriptions: No Action metFORMIN HCL [Glucophage] 500 mg PO BID RX: Aspirin 81 mg PO DAILY RX: Insulin Lispro 10 units SQ TID-W/MEALS Levothyroxine Sodium [Synthroid] 150 mcg PO DAILY Insulin Glargine (Lantus) [Lantus Vial] 100 unit SQ HS Discharge Medication List Levothyroxine Sodium [Synthroid] 150 mcg PO DAILY 10/24/22 [History] RX: Aspirin 81 mg PO DAILY 10/06/24 [History] metFORMIN HCL [Glucophage] 500 mg PO BID 10/06/24 [History] Insulin Glargine (Lantus) [Lantus Vial] 100 unit SQ HS 11/24/24 [History] RX: Insulin Lispro 10 units SQ TID-W/MEALS 11/24/24 [History] Follow up Appointment(s)/Referral(s): Alem Bernstein MD [STAFF PHYSICIAN] - 2 Weeks (2 Week 01/07/2025 @2:00Pm 6 Week 02/08/2025 @1:15Pm) Discharge Disposition: HOME SELF-CARE
[2024-12-26] MEDS: SODIUM FERRIC GLUCONAT-SUCROSE 125 MG in SODIUM CHLORIDE 0.9% 100 ML IVPB SCH (11:59)
[2024-12-26 12:11] LABS: Glucose,Whole Blood 161 mg/dL (70-110)
[2024-12-26 15:11] LABS: Ferritin 51.1 ng/mL (10.0-291.0); Iron 49.0 UG/DL (50-170); Total Iron Binding Capacity 554.0 UG/DL (228-460)
--- NOTE | 2024-12-26 15:12 | P.PN ---
Subjective Progress Note Date: 12/26/24 Hospital course: Patient is a 34-year-old female with a past medical history of iron deficiency anemia, hypothyroidism, and gestational diabetes with likely underlying type 2 diabetes mellitus. Patient is status post repeat low-transverse section with delivery of a baby boy. We were consulted by TIRE DESIGN ENGINEER team for management of patient's diabetes and acute on chronic anemia. Physical exam: Patient seen and fully evaluated at bedside this morning. She was sitting on bench feeding baby at this time. She denies having any headache, lightheadedness, dizziness, chest pain, palpitations, shortness of breath, nausea, vomiting, or experiencing any numbness/tingling/weakness/swelling in her extremities. Vital signs reviewed and stable. General: Nontoxic, no distress and appears stated age. Derm: Skin warm and dry, normal coloration for ethnicity. Head: Atraumatic, normocephalic and symmetric. Eyes: EOM's intact, no lid lag, and anicteric sclera Mouth: no lip lesions, mucus membranes moist Cardiovascular: regular rate and rhythm with normal S1S2, no murmur, positive posterior tibial pulses bilaterally, and cap refill < 2 seconds. Lungs: Respirations even, regular, and unlabored on room air. Lungs CTA bilaterally, no rhonchi, no rales, no wheezing, and no accessory muscle usage. Abdominal: abdomen, soft, no guarding, no appreciable organomegaly Ext: ROM intact. No gross muscle atrophy, no edema, no contractures. Compression stockings in place. Neuro: Speech clear, face symmetrical and CN II-XII grossly intact with no noted focal neuro deficits Psych: Alert and oriented to person, place, time, and situation. Appropriate and pleasant affect. Assessment and Plan of Care: Gestational diabetes with likely underlying type 2 diabetes mellitus. -Patient previously taking lispro 10 units 3 times daily, Lantus 100 mg nightly, and metformin 500 mg twice daily. Patient reports she has not taken her Lantus in an extensive amount of time and that it has been a few days since she last took her lispro. -Hemoglobin A1c was 8.1%. - Recommend patient continue taking metformin 500 mg twice daily and lispro 10 units 3 times daily with meals. Patient educated on the importance of monitoring blood glucose levels closely and documenting results in a daily log to bring with her to her follow-up appointment with PCP and director of consulting services. Acute on chronic iron deficiency anemia, asymptomatic -Hemoglobin upon arrival to facility was 8.3, status post delivery hemoglobin 6.6 and 5.9. Patient received 1 unit PRBCs with repeat hemoglobin of 7.3. -Iron profile revealed total iron of 49, TIBC of 554, iron percent saturation of 8.84 and transferrin of 396. Pt received 2 doses of IV Ferrlecit and being discharged home on ferrous sulfate 325 mg daily. Hypothyroidism -Continue levothyroxine 150 mg daily. Patient reports taking on medication this morning. Status post repeat low-transverse section - management per primary admitting TIRE DESIGN ENGINEER team. Data reviewed: Labs reviewed. Iron profile revealed total iron of 49, TIBC of 554, iron per cent saturation of 8.84 and transferrin of 396. Hemoglobin upon arrival to facility was 8.3, status post delivery hemoglobin 6.6 and 5.9. Patient received 1 unit PRBCs with repeat hemoglobin of 7.3. Hemoglobin A1c 8.1%. Vital signs reviewed. Blood pressure 115/71, heart rate 89, respiratory rate 20, temp 98.0 F, and SpO2 of 98% on room air. Thank you for allowing us to participate in the care of this pleasant patient. Do not hesitate to contact us with questions. Someone can be reached from the [facility] hospitalist group all hours of the day at [phone] or via perfect serve. Patient was seen independently by Nurse Pracitioner. This document was prepared using InvenQuery dictation software. Please allow for errors in senior nuclear medicine technologist, while rare they do occur. Sameer Jaimes NP rendered care for this patient independently, reviewed the findings and plan as documented in the note above and agree with plan. I did not physically speak with or examine the patient on this date. Objective - Vital Signs Vital signs: Vital Signs Temp 98.4 F 12/26/24 00:00 Pulse 84 12/26/24 00:00 Resp 16 12/26/24 00:00 BP 94/56 12/26/24 00:00 Pulse Ox 97 12/26/24 00:00 FiO2 - Labs CBC & Chem 7: 12/26/24 15:38 Labs: Abnormal Lab Results - Last 24 Hours (Table) 12/24/24 12/26/24 12/26/24 Range/Units 10:26 07:23 08:36 RBC 3.00 L (4.10-5.20) 10*6/uL Hgb 5.9 L* (12.0-15.0) g/dL Hct 20.5 L (37.2-46.3) % MCV 68.3 L (80.0-97.0) fL MCH 19.7 L (27.0-32.0) pg MCHC 28.8 L (32.0-37.0) g/dL POC Glucose (mg/dL) 201 H (70-110) mg/dL Crossmatch See Detail
[2024-12-26 15:46] LABS: HCT 24.7 % (37.2-46.3); HGB 7.3 g/dL (12.0-15.0); MCH 21.0 pg (27.0-32.0); MCHC 29.6 g/dL (32.0-37.0); MCV 71.0 fL (80.0-97.0); Platelet Count 221 10*3/uL (140-440); RBC 3.48 10*6/uL (4.10-5.20); RDW 19.2 % (11.5-14.5); WBC 9.65 10*3/uL (4.50-10.00)
[2024-12-26 16:47] VITALS: BP 112/64; PULSE 82; TEMP 97.9
== END 2024-12-26 17:35 | disposition home or self-care (01) | DRG 786 ==
LOC: 4FBP 10:00
PROVIDERS: ADMIT Obstetrics & Gynecology; ATTEND Obstetrics & Gynecology
PROC: 10D00Z1 Extraction of Products of Conception, Low, Open Approach (ICD-10-PCS; principal; 2024-12-24 12:00)
PROC: 30273N1 Transfusion of Nonautologous Red Blood Cells into Products of Conception, Circulatory, Percutaneous Approach (ICD-10-PCS; 2024-12-26)
DX: O34.211 Maternal care for low transverse scar from previous cesarean delivery (principal); O24.12 Pre-existing type 2 diabetes mellitus, in childbirth; D62 Acute posthemorrhagic anemia; O99.214 Obesity complicating childbirth; O69.81X0 Labor and delivery complicated by cord around neck, without compression, not applicable or unspecified; O99.02 Anemia complicating childbirth; O99.284 Endocrine, nutritional and metabolic diseases complicating childbirth; D50.9 Iron deficiency anemia, unspecified; E03.9 Hypothyroidism, unspecified; Z68.43 Body mass index [BMI] 50.0-59.9, adult; E66.813 Obesity, class 3; Z79.4 Long term (current) use of insulin; Z37.0 Single live birth; Z3A.37 37 weeks gestation of pregnancy; Z79.82 Long term (current) use of aspirin; Z79.890 Hormone replacement therapy; Z87.891 Personal history of nicotine dependence; Z79.84 Long term (current) use of oral hypoglycemic drugs; Z71.3 Dietary counseling and surveillance
CPT/HCPCS: 82728; 83036; 83540; 83550; 85025; 85027; 86850; 86900; 86901; 86920